=== PATIENT | female | born 1985 | race Caucasian/White ===

== ENCOUNTER 2016-12-27 20:01 | Emergency (ER) | payer OTHER ==
--- NOTE | 2016-12-27 22:52 | DIAGNOSTIC IMAGING REPORT ---
PROCEDURE: US ABDOMEN ULTRASOUND-COMPLETE INDICATION: LLQ ABDO PAIN TECHNIQUE: Burns scale and color Doppler sonographic images of the abdomen were obtained without comparison. COMPARISON: None. FINDINGS: The liver is normal in size, contour, and echotexture. No mass or intrahepatic biliary dilatation. The gallbladder is normal without stones or sludge. The wall is normal thickness measuring 2.2 mm. No pericholecystic fluid or Luna sign. The extrahepatic common duct is normal measuring 2.3 mm. The visualized pancreas is normal without ductal dilatation or peripancreatic fluid collection. The abdominal aorta is normal in its course and caliber. The retrohepatic inferior vena cava is patent. There is appropriate hepatopetal flow in the portal vein. The right kidney measures 11.0 cm in length. The left kidney measures approximately 10.4 cm in length. Both kidneys demonstrate normal morphology and cortical thickness without hydronephrosis, cyst, solid mass, or shadowing calculus. Color Doppler imaging demonstrates normal blood flow in each kidney. The spleen is normal in size measuring 9.8 cm in length. There is no perihepatic or perisplenic ascites. IMPRESSION: 1. Normal abdominal ultrasound. 2. Most of the pancreas was seen and appears normal.
--- NOTE | 2016-12-28 00:26 | ED NURSING NOTES ---
Clinical Report - Nurses [facility] [address] [place] [address] 12/27/2016 20:01 Patient: DANIEL MOON TRIAGE Triage time 2014. Acuity: LEVEL 3. Chief Complaint: ABDOMINAL PAIN, NAUSEA and VOMITING. --20:20 Rosa Beth R.N. 20:15 12/27/16. BP: 101/71. HR: 60. RR: 16. O2 saturation: 100%. Temp: 98.4 F. Pain level now: 04/13. --20:20 Rosa Beth R.N. Weight: 61.2 kg stated. Height/Length: 65 inches Per Patient. BMI: 22.5. --20:17 Rosa Beth R.N. Medications Omeprazole Oral 40 mg, daily as needed. OxyCODONE HCl Oral 10 mg, as needed, last dose 2200 (cant hold them down ). --20:15 Rosa Beth R.N. zofran 4mg odt (threw up last 2 at 2200 . --20:16 Rosa Beth R.N. Allergies Augmentin. --20:15 Rosa Beth R.N. Erythromycin. Latex. Penicillin V. Penicillins. Sulfa Drugs. --20:15 Rosa Beth R.N. History Arrived by private vehicle. Historian: patient. Accompanied by friend. This started last night. Onset. (2100). She has had nausea and vomiting. She has had abdominal pain (LLQ abd pain - states pain is a burning cramping pain "I feel like Moon been poisoned). No diarrhea. PAST MEDICAL HX: Last normal menstrual period- 2 weeks. SOCIAL HX: Light tobacco smoker (cigarette)- less than 1/2 a pack per day. Occasional alcohol use. No drug use. --20:20 Rosa Beth R.N. PROBLEMS: Wound Dehiscence. Sciatica. Back Pain. Torticollis. --20:17 Rosa Beth R.N. ADDITIONAL SURGERIES: Back Surgery. Carpal Tunnel Surgery. Hernia Repair. LESI. R ovarian tube removal. Tubal Ligation. --20:17 Rosa Beth R.N. Interventions ID band on patient. To treatment room. --20:20 Rosa Beth R.N. PHYSICAL ASSESSMENT 20:15. Ambulatory to room. Patient gowned. GENERAL / NEURO / PSYCH: Alert. Oriented X 4. Appears in pain. RESPIRATORY: Respirations not labored. CVS: Capillary refill less than 2 seconds. GI / : The patient has had nausea. Emesis noted. Abdominal tenderness. SKIN: Skin is warm and dry. --20:22 Rosa Beth R.N. NURSING PROGRESS NOTES 20:15. Patient gowned. Head of bed elevated. Reassurance given. Patient identifiers checked. Call light placed in reach. Side rails up. Bed placed in lowest position. Patient ready for evaluation- chart flagged. --20:20 Rosa Beth R.N. 20:17 12/27/2016 Zofran ODT (Ondansetron) PO Oral Disintegrating Tablets 4 mg given. Allergies verified and confirmed 5 rights. --20:22 Rosa Beth R.N. 20:20 12/27/2016 Site #1 started via IV in the left antecubital space with an 20g angiocath, with aseptic technique and good blood return; one attempt. Blood drawn: rainbow set. Labeled in the presence of the patient and sent to the lab. Saline lock flushed with 10 mL saline (by LLUVIA Tapia). --20:21 Rosa Beth R.N. 20:20 IV started and bloods drawn. --20:21 Rosa Beth R.N. <<STRICKEN ENTRY-- 21:00 12/27/2016 Reglan (Metoclopramide HCl) IVP 10 mg given over 2 minute(s) via site #1. IV patency established. IV site checked: no pain, redness, or swelling. IV flushed thoroughly pre- and post-medication administration. IVP given by RN. --21:09 Rosa Beth R.N. --END STRIKE>> Other. --23:12 Rosa Beth R.N. 21:10 12/27/2016 PHENERGAN (Promethazine HCl) IVP 25 mg given over 1 minute(s) via site #1. IV patency established. IV site checked: no pain, redness, or swelling. IV flushed thoroughly pre- and post-medication administration. IVP given by RN. --21:25 Rosa Beth R.N. 20:50 pt asking for additional nausea meds, ERMD notified meds given. --21:26 Rosa Beth R.N. 21:05 Pt vomited, ERMD notified, additional nausea meds ordered and given. --21:26 Rosa Beth R.N. 21:10 12/27/16. BP: 111/67. HR: 72. RR: 18. O2 saturation: 100%. Temp: deferred. Pain level now: 02/11. --21:27 Rosa Beth R.N. 21:57 12/27/16. ( US at bedside to do exam). --21:57 Rosa Beth R.N. 22:15 pt ambulated to bathroom, UA obtained and sent to lab. Patient ID band checked for patient name and birthdate: patient confirmed. Clean catch urine collected with return of yellow-colored clear urine; sample sent to lab for urinalysis, culture and HCG. Specimen labeled in the presence of the patient. --23:06 Rosa Beth R.N. 22:00 12/27/16. BP: 130/84. HR: 68. RR: 18. O2 saturation: 100%. Temp: deferred. Pain level now: 12/12. Additional comments: pt states pain and nuasea have increased since she got up to bathroom , asking for aditional nausea meds . --23:07 Rosa Beth R.N. 22:30. Care transferred and report given. --23:07 Rosa Beth R.N. 20:20 12/27/2016 Started bag #1 1000 mL IV Fluids IV NS (Saline); at 1000 mL/hr over 1 hour(s) via site #1 via IV pump. IV patency established. IV site checked: no pain, redness, or swelling. IV flushed thoroughly pre- and post-medication administration. --23:08 Rosa Beth R.N. 20:43 12/27/2016 Zofran (Ondansetron HCl) IVP 4 mg given over 1 minute(s) via site #1. IV patency established. IV site checked: no pain, redness, or swelling. IV flushed thoroughly pre- and post-medication administration. IVP given by RN. --23:09 Rosa Beth R.N. 20:55 12/27/2016 Reglan * IVP 10mg --23:10 Rosa Beth R.N. 20:55 12/27/2016 Reglan (Metoclopramide HCl) IVP 10 mg given over 2 minute(s) via site #1. IV patency established. IV site checked: no pain, redness, or swelling. IV flushed thoroughly pre- and post-medication administration. IVP given by RN (given slowly over 2 min). --23:12 Rosa Beth R.N. 21:00 12/27/2016 Morphine IVP 4 mg given over 1 minute(s) via site #1. IV patency established. IV site checked: no pain, redness, or swelling. IV flushed thoroughly pre- and post-medication administration. IVP given by RN. --23:11 Rosa Beth R.N. <<STRICKEN ENTRY-- 21:30 12/27/2016 Started bag #1 1000 mL IV Fluids IV NS (Saline); at 1000 mL/hr over 1 hour(s) via site #1 via IV pump. IV patency established. IV site checked: no pain, redness, or swelling. IV flushed thoroughly pre- and post-medication administration. --23:15 Rosa Beth R.N. --END STRIKE>> Correction. --23:15 Rosa Beth R.N. 21:30 12/27/2016 Started bag #2 1000 IV Fluids IV NS (Saline); at 1000 mL/hr over 1 hour(s) via site #1 via IV pump. IV patency established. IV site checked: no pain, redness, or swelling. IV flushed thoroughly pre- and post-medication administration. --23:15 Rosa Beth R.N. 21:30 12/27/2016 IV Fluids IV NS Discontinued: bag #1 infused. Total amount infused: 1000 mL. --23:13 Rosa Beth R.N. 22:40 12/27/2016 IV Fluids IV NS Discontinued: bag #2 infused. Total amount infused: 1000 mL. IV patency established. IV site checked: no pain, redness, or swelling. IV flushed thoroughly. (converted to saline lock). --23:16 Rosa Beth R.N. 23:10. The patient is sleeping. SKIN: Skin color within normal limits. --23:56 Juan Porras R.N. 23:56. The patient is calm and resting quietly. SKIN: Skin is warm and dry. Skin color within normal limits. --23:57 Juan Porras R.N. 23:56 12/27/16. BP: 118/74. HR: 61. RR: 15. O2 saturation: 98%. Pain level now: 5/10. --23:57 Juan Porras R.N. 00:26. The patient is calm and resting quietly. SKIN: Skin is warm and dry. Skin color within normal limits. --00:32 Juan Porras R.N. DISPOSITION / DISCHARGE Departure time: 00:28. ( See progress for vitals). The patient left the Emergency Department against medical advice. The patient appears to be alert, oriented x4, coherent and in no acute distress. She notified the ED staff prior to leaving the department and stated is leaving the ED due to personal reasons. Notified the ED physician and charge nurse of patient departure. Prior to leaving the ED, she was advised to stay for completion of treatment and return if needed. She was informed of the risks of leaving and verbalized understanding of these risks. Patient signed form prior to leaving. She left the Emergency Department ambulatory and via private vehicle. --00:32 Juan Porras R.N. 00:23 12/28/2016 Site #1 removed upon discharge. Catheter intact. Bandage applied. --00:36 Juan Porras R.N. Locked/Released at 12/28/2016 1:26 by Juan Porras R.N.
--- NOTE | 2016-12-28 00:26 | ED ORDER SUMMARY ---
..... Patient: DANIEL MOON OrderSheet [facility] VisitID: [id number] [place] [address] 31y, F Registration Date/Time: 12/27/2016 ORDER SHEET Weight: 61.2 kg (stated) Allergies: Augmentin, Erythromycin, Latex, Penicillin V, Penicillins, Sulfa Drugs GENERAL ORDERS: US Abdomen Limited (No) Urgent (20:37 12/27/2016 Jason Mobley) (Ack 20:41 [facility] Manager) (23:03 [facility] Aquatics Manager) CBC w Diff Urgent (20:38 12/27/2016 Jason Mobley) (Ack 20:41 [facility] Aqu[facility] Manager) (20:43 DDean R.N.) CMP Urgent (20:38 12/27/2016 Jason Mobley) (Ack 20:41 [facility] Aqu[facility] Manager) (20:43 DDean R.N.) UA-Culture if indicated Urgent (20:38 12/27/2016 Jason Mobley) (Ack 20:41 [facility] Aquatics Manager) (23:07 DDean R.N.) Lipase Urgent (20:38 12/27/2016 Jason Mobley) (Ack 20:41 [facility] Aquatics Manager) (20:43 DDean R.N.) Serum Quantitative Urgent (20:38 12/27/2016 Jason Mobley) (Ack 20:41 [facility] Aqu[facility] Manager) (23:07 DDean R.N.) Pulse oximeter (20:38 12/27/2016 Jason Mobley) (21:25 DDean R.N.) CT Abd/Pel w Cont (No) (See report) Urgent (23:20 12/27/2016 Ana WILD) (Ack 23:22 [facility] Aquatics Manager) (Cancelled: Patient Left0:45 [facility] Aquatics Manager) MEDICATION ORDERS: Zofran ODT PO 4 mg (NOW) (20:21 12/27/2016 DDean R.N. per protocol) (20:22 DDean R.N.) Phenergan IV 25 mg (HIGH ALERT MEDICATION, NOW) (21:10 12/27/2016 Jason Mobley) (21:25 DDean R.N.) IV FLUIDS: Morphine IV 4 mg (HIGH ALERT MEDICATION, NOW) (20:37 12/27/2016 Jason Mobley) (Ack 20:43 DDean R.N.) (23:11 DDean R.N.) IV NS : initial bolus 1000 mL (1000 mL/hr), then none - for X1 (NOW) (20:38 12/27/2016 Jason Mobley) (Ack 20:43 DDean R.N.) (23:08 DDean R.N.) Zofran IV 4 mg (NOW) (20:38 12/27/2016 Jason Mobley) (Ack 20:43 DDean R.N.) (23:09 DDean R.N.) Reglan IV 10 mg (NOW) (20:52 12/27/2016 Jason Mobley) (21:09 DDean R.N.) IV NS : initial bolus none -, then 1000 mL/hr for X1 (NOW) (23:14 12/27/2016 DDean R.N. per protocol) (23:15 DDean R.N.) ORDER SHEET NOTES: [Electronically signed by Juan Porras R.N. (:12/28/2016)] [Electronically signed by Abner Hilton MD (11:29 12/28/2016)] [Electronically locked/signed by Juan Porras R.N. (12/28/2016)]
--- NOTE | 2016-12-28 00:26 | ED ORDER SUMMARY ---
..... Patient: DANIEL MOON OrderSheet [facility] VisitID: [id number] [place] [address] 31y, F Registration Date/Time: 12/27/2016 ORDER SHEET Weight: 61.2 kg (stated) Allergies: Augmentin, Erythromycin, Latex, Penicillin V, Penicillins, Sulfa Drugs GENERAL ORDERS: US Abdomen Limited (No) Urgent (20:37 12/27/2016 Jason Mobley) (Ack 20:41 [facility] Pta) (23:03 [facility] ER Pta) CBC w Diff Urgent (20:38 12/27/2016 Jason Mobley) (Ack 20:41 [facility] ER Pta) (20:43 DDean R.N.) CMP Urgent (20:38 12/27/2016 Jason Mobley) (Ack 20:41 [facility] ER Pta) (20:43 DDean R.N.) UA-Culture if indicated Urgent (20:38 12/27/2016 Jason Mobley) (Ack 20:41 [facility] ER Pta) (23:07 DDean R.N.) Lipase Urgent (20:38 12/27/2016 Jason Mobley) (Ack 20:41 [facility] ER Pta) (20:43 DDean R.N.) Serum Quantitative Urgent (20:38 12/27/2016 Jason Mobley) (Ack 20:41 [facility] ER Pta) (23:07 DDean R.N.) Pulse oximeter (20:38 12/27/2016 Jason Mobley) (21:25 DDean R.N.) CT Abd/Pel w Cont (No) (See report) Urgent (23:20 12/27/2016 Ana WILD) (Ack 23:22 [facility] Pta) (Cancelled: Patient Left0:45 [facility] ER Pta) MEDICATION ORDERS: Zofran ODT PO 4 mg (NOW) (20:21 12/27/2016 DDean R.N. per protocol) (20:22 DDean R.N.) Phenergan IV 25 mg (HIGH ALERT MEDICATION, NOW) (21:10 12/27/2016 Jason Mobley) (21:25 DDean R.N.) IV FLUIDS: Morphine IV 4 mg (HIGH ALERT MEDICATION, NOW) (20:37 12/27/2016 Jason Mobley) (Ack 20:43 DDean R.N.) (23:11 DDean R.N.) IV NS : initial bolus 1000 mL (1000 mL/hr), then none - for X1 (NOW) (20:38 12/27/2016 Jaosn Mobley) (Ack 20:43 DDean R.N.) (23:08 DDean R.N.) Zofran IV 4 mg (NOW) (20:38 12/27/2016 Jason Mobley) (Ack 20:43 DDean R.N.) (23:09 DDean R.N.) Reglan IV 10 mg (NOW) (20:52 12/27/2016 Jason Mobley) (21:09 DDean R.N.) IV NS : initial bolus none -, then 1000 mL/hr for X1 (NOW) (23:14 12/27/2016 DDean R.N. per protocol) (23:15 DDean R.N.) ORDER SHEET NOTES: [Electronically signed by Juan Porras R.N. (:12/28/2016)] [Electronically signed by Abner Hilton MD (11:29 12/28/2016)] [Electronically locked/signed by Juan Porras R.N. (12/28/2016)]
--- NOTE | 2016-12-28 00:26 | ED CLINICAL REPORT ---
Clinical Report - Physicians/Mid Levels [facility] [address] [place] [address] 12/27/2016 20:01 Patient: DANIEL MOON Time Seen: 2029. Arrived- By private vehicle. Historian- patient. HISTORY OF PRESENT ILLNESS Chief Complaint: ABDOMINAL PAIN. This started last night and is still present (unchanged). It was abrupt in onset and has been constant but is not gone now. At its maximum, severity described as severe. When seen in the E.D., severity described as severe. It is described as sharp. No radiation. It is described as located in the left lower quadrant. The patient has had nausea and vomiting. No loss of appetite or diarrhea. No additional abdominal pain. No recent travel. Similar symptoms previously: None. Recent medical care: Not recently seen/assessed. REVIEW OF SYSTEMS No constipation, black stools, bloody stools, fever or chest pain. No difficulty breathing. All systems otherwise negative, except as recorded above. PAST HISTORY See nurses notes. SOCIAL HISTORY Current every day light tobacco smoker (cigarette)- less than 1/2 a pack per day. Occasional alcohol use. No drug use. FAMILY HISTORY Denies family medical history. ADDITIONAL NOTES The nursing notes have been reviewed. PHYSICAL EXAM Vital Signs: 12/27/2016 20:15 BP: 101/71. HR: 60. RR: 16. O2 saturation: 100%. Temp: 98.4 F. Pain level now: 10/10. Blood pressure normal. Oxygen saturation normal. Appearance: Alert. Oriented X3. Patient in mild distress. Eyes: Pupils equal, round and reactive to light. Eyes normal inspection. No scleral icterus or pale conjunctivae. ENT: Pharynx normal. CVS: Normal heart rate and rhythm. Heart sounds normal. Pulses normal. Respiratory: No respiratory distress. Breath sounds normal. Chest nontender. Abdomen: Soft. Tenderness in the left lower quadrant. No guarding, rebound tenderness or Luna's, obturator or psoas sign present. Bowel sounds normal. No mass. Skin: Skin warm and dry. Normal skin color. No rash. Normal skin turgor. Neuro: No motor deficit. No sensory deficit. LABS, X-RAYS, AND EKG Abdominal Sonogram: Normal study. (discussed with the US tech). The study was independently viewed by me. Laboratory Tests: UA-Culture if indicated: (HILARY: 12/27/2016 22:10) ( [facility] [place] 12/27/2016 22:33) Final results Test Result Flag Units (Reference) URINE COLOR ORANGE URINE APPEARANCE SL CLOUDY URINE GLUCOSE NEGATIVE (NEGATIVE) URINE BILIRUBIN NEGATIVE (NEGATIVE) URINE KETONE NEGATIVE (NEGATIVE) URINE SPECIFIC GRAVITY 1.020 (1.010-1.030) URINE PH 7.0 (5.0-8.0) URINE PROTEIN 1+ (NEGATIVE) URINE UROBILINOGEN 0.2 EU/dL (0.2-1.0) URINE NITRITE NEGATIVE (NEGATIVE) URINE BLOOD NEGATIVE (NEGATIVE) URINE LEUK ESTERASE NEGATIVE (NEGATIVE) URINE RBC 0-1 rbc/hpf (0-1) URINE WBC 1-3 wbc/hpf (0-1) URINE EPITHELIAL CELLS 1-3 EPI/hpf (0-5) URINE BACTERIA FEW (1+) (NONE SEEN) URINE COMMENT CULT NOT INDICATED URINE CULTURES ARE SET-UP BASED ON THE FOLLOWING CRITERIA:POSITIVE NITRITEPOSITIVE LEUKOCYTE ESTERASEGREATER THAN 10 WHITE BLOOD CELLSMODERATE (2+) OR GREATER BACTERIA CBC w Diff: (HILARY: 12/27/2016 20:20) ( [facility] 12/27/2016 21:03) Final results Test Result Flag Units (Reference) WHITE BLOOD COUNT 10.1 K/uL (4.5-11.5) RED BLOOD COUNT 5.11 M/uL (4.00-5.20) HEMOGLOBIN 15.1 gm/dL (12.0-16.0) HEMATOCRIT 45.5 % (36.0-46.0) MEAN CELL VOLUME 89 fL (80-100) MEAN CORPUSCULAR HGB 30 pg (26-34) MEAN CORPUSCULAR HGB CONC 33 g/dL (31-37) RED CELL DISTRIBUTION WIDTH 13.7 % (11.6-14.8) PLATELET COUNT 461 H K/uL (150-400) NEUTROPHIL % 80.5 H % (50-75) LYMPH % 14.7 L % (25-40) MONO % 4.6 % (3-14) EOSINOPHIL % 0 % (0-4) BASOPHIL % 0.2 % (0-2) CMP: (HILARY: 12/27/2016 20:20) ( [facility] 12/27/2016 21:15) Final results Test Result Flag Units (Reference) GLUCOSE 97 mg/dL (70-110) BUN 24 H mg/dL (7-18) CREATININE 0.9 mg/dL (0.6-1.3) Estimated GFR >60 mL/min Estimated GFR- >60 mL/min Note: Persistent reduction over 3 months in eGFR<60 mL/min/1.73 m2 defines CKD. Patients with eGFR values>=60 mL/min/1.73 m2 may also have CKD if evidence ofpersistent proteinuria. Additional information may be foundat www.kidney.org. SODIUM 144 mmol/L (136-145) POTASSIUM 3.8 mmol/L (3.5-5.1) CHLORIDE 103 mmol/L (98-107) CARBON DIOXIDE 25 mmol/L (21-32) CALCIUM 9.7 mg/dL (8.5-10.1) TOTAL PROTEIN 8.1 g/dL (6.4-8.2) ALBUMIN 4.4 g/dL (3.3-5.0) BILIRUBIN, TOTAL 0.7 mg/dL (0.0-1.0) ALKALINE PHOSPHATASE 57 U/L (46-116) AST (SGOT) 14 L U/L (15-37) ALT (SGPT) 23 U/L (12-78) LIPASE 148 U/L (73-393) BETA HCG, QUANTITATIVE 1 mIU/mL REFERENCE RANGE:Adult Males: <2 mIU/mLNon- Females: <6 mIU/mL Females:Approximate Approximate hCGGestational Age Range (mIU/mL) 0-1 week 0-501-2 weeks 40-3002-3 weeks 100-43895-0 weeks 500-01546-3 months 5,000-200,0002-3 months 10,000-100,0002nd trimester 3,000-50,0003rd trimester 1,000-50,000 . PROGRESS AND PROCEDURES Course of Care: patient with left lower quadrant abdominal pain as well as nausea and vomiting. Patient will be evaluated with ultrasound of the left lower quadrant for any ovarian or COPIER REPAIR TECHNICIAN pathology. Laboratory studies including urinalysis and test have been ordered. Workup is currently pending. Patient will be signed out to the oncoming physician at the change of shift. Plan is follow-up on the patient's labs and imaging. Dr. Jean and I discussed the patient's history and physical examination findings and the results of her labs. He requested that I follow up on the results of her ultrasound which I did. I subsequently reviewed the patient's history with her and examined her and my findings were consistent with those noted by him. I subsequently suggested that she might benefit from CT imaging. This was subsequently ordered. However, she subsequently decided that she did not want to wait for the imaging. I expressed my concern for the possibility of a missed or an erroneous diagnosis. She acknowledged an understanding of this but said that she did not want to wait and wished to depart. She subsequently signed an AMA form. I did tell her that she could return at any time if she wishes and I did provide her with prescriptions for symptomatic relief as noted. - MW. Patient/family counseled. Old medical records ordered. CLINICAL IMPRESSION Acute left lower quadrant abdominal pain of unknown cause. INSTRUCTIONS No driving or operating machinery while taking medication. Sedative medication was given during your visit. Drink plenty of fluids. Warnings: Further evaluation is necessary. GENERAL WARNINGS: Return or contact your physician immediately if your condition worsens or changes unexpectedly, if not improving as expected, or if other problems arise. Prescription Medications: Zofran 4 mg: Take 1 orally every six hours as needed for nausea/vomiting. Dispense ten (10). No refills. Substitution is permissible. Phenergan suppositories 25 mg: Insert 1 rectally every 4 to 6 hours as needed for nausea or vomiting. Dispense ten (10). No refills. Substitution is permissible. Follow-up: Follow up with your doctor today. Understanding of the discharge instructions verbalized by patient. (Electronically signed by Abner Hilton MD 12/28/2016 11:29)
--- NOTE | 2016-12-28 11:29 | ED MED RECONCILIATION SUMMARY ---
Patient: DANIEL MOON Medication Reconciliation Report [facility] VisitID: [id number] [place] [address] 31y, F Registration Date/Time: 12/27/2016 Weight: 61.2 kg Height/Length: 65 in. BMI: 22.5 ALLERGIES: Augmentin, Erythromycin, Latex, Penicillin V, Penicillins, Sulfa Drugs The patient's Home Medications are listed below: THE FOLLOWING MEDICATIONS NEED TO BE RECONCILED: Omeprazole Oral 40 mg, daily OxyCODONE HCl Oral 10 mg, last dose: 2200 (cant hold them down ) zofran 4mg odt (threw up last 2 at 2200 The source(s) of the original Home Medication information: Not obtained. The following Medications were given to the patient in the Emergency Department: Zofran ODT [PO] PO 4 mg, administered: 12/27/2016 8:17:00 PM Reglan [IVP] IVP 10 mg, administered: 12/27/2016 8:55:00 PM PHENERGAN [IVP] IVP 25 mg, administered: 12/27/2016 9:10:00 PM IV NS IV Fluids bolus 0, then 1000 mL/hr, administered: 12/27/2016 8:20:00 PM Zofran [IVP] IVP 4 mg, administered: 12/27/2016 8:43:00 PM Reglan IVP 10mg, administered: 12/27/2016 8:55:00 PM Morphine [IVP] IVP 4 mg, administered: 12/27/2016 9:00:00 PM IV NS IV Fluids bolus 0, then 1000 mL/hr, administered: 12/27/2016 9:30:00 PM The following Medications were prescribed to the patient: Zofran 4 mg: Take 1 orally every six hours as needed for nausea/vomiting. Dispense ten (10). No refills. Substitution is permissible. -- Abner Hilton MD Phenergan suppositories 25 mg: Insert 1 rectally every 4 to 6 hours as needed for nausea or vomiting. Dispense ten (10). No refills. Substitution is permissible. -- Abner Hilton MD
--- NOTE | 2016-12-28 11:29 | ED DISCHARGE INSTRUCTIONS ---
Patient: DANIEL MOON General Instructions [facility] VisitID: [id number] [place] [address] 31y, F Registration Date/Time: 12/27/2016 Acute left lower quadrant abdominal pain of unknown cause. INSTRUCTIONS No driving or operating machinery while taking medication. Sedative medication was given during your visit. Drink plenty of fluids. Warnings: Further evaluation is necessary. GENERAL WARNINGS: Return or contact your physician immediately if your condition worsens or changes unexpectedly, if not improving as expected, or if other problems arise. Prescription Medications: Zofran 4 mg: Take 1 orally every six hours as needed for nausea/vomiting. Dispense ten (10). No refills. Substitution is permissible. Phenergan suppositories 25 mg: Insert 1 rectally every 4 to 6 hours as needed for nausea or vomiting. Dispense ten (10). No refills. Substitution is permissible. Follow-up: Follow up with your doctor today. Understanding of the discharge instructions verbalized by patient. ADDITIONAL INFORMATION Abdominal Pain, Unknown Cause (Female) The exact cause of your abdominal (stomach) pain is not certain. This does not mean that this is something to worry about, or the right tests were not done. Everyone likes to know the exact cause of the problem, but sometimes with abdominal pain, there is no clear-cut cause, and this could be a good thing. The good news is that your symptoms can be treated, and you will feel better. Your condition does not seem serious now; however, sometimes the signs of a serious problem may take more time to appear. For this reason,it is important for you to watch for any new symptoms, problems,or worsening of your condition. Over the next few days, the abdominal pain may come and go, or be continuous. Other common symptoms can include nausea and vomiting. Sometimes it can be difficult to tell if you feel nauseous, you may just feel bad and not associate that feeling with nausea. Constipation, diarrhea, and a fever may go along with the pain. The pain may continue even if treated correctly over the following days. Depending on how things go, sometimes the cause can become clear and may require further or different treatment. Additional evaluations, medications, or tests may be needed. Home care Your health care provider may prescribe medications for pain, symptoms, or an infection. Follow the health care provider's instructions for taking these medications. General care Rest until your next exam. No strenuous activities. Try to find positions that ease discomfort. A small pillow placed on the abdomen may help relieve pain. Something warm on your abdomen (such as a heating pad) may help, but be careful not to burn yourself. Diet Do not force yourself to eat, especially if having cramps, vomiting, or diarrhea. Water is important so you do not get dehydrated. Soup may also be good. Sports drinks may also help, especially if they are not too acidic. Make sure you don't drink sugary drinks as this can make things worse. Take liquids in small amounts. Do not guzzle them. Caffeine sometimes makes the pain and cramping worse. Avoid dairy products if you have vomiting or diarrhea. Don't eat large amounts at a time. Wait a few minutes between bites. Eat a diet low in fiber (called a low-residue diet). Foods allowed include refined breads, white rice, fruit and vegetable juices without pulp, tender meats. These foods will pass more easily through the intestine. Avoid whole-grain foods, whole fruits and vegetables, meats, seeds and nuts, fried or fatty foods, dairy, alcohol and spicy foods until your symptoms go away. Follow-up care Follow up with your health care provider as instructed, or if your pain does not begin to improve in the next 24 hours. When to seek medical care Seek prompt medical care if any of the following occur: Pain gets worse or moves to the right lower abdomen New or worsening vomiting or diarrhea Swelling of the abdomen Unable to pass stool for more than three days Fever of 100.4F (38C) or higher, or as directed by your healthcare provider. Blood in vomit or bowel movements (dark red or black color) Jaundice (yellow color of eyes and skin) Weakness, dizziness Chest, arm, back, neck or jaw pain Unexpected vaginal bleeding or missed period Call 911 Call emergency services if any of the following occur: Trouble breathing Confusion Fainting or loss of consciousness Rapid heart rate Seizure Ondansetron Oral disintegrating tablet What is this medicine? ONDANSETRON (on ONEIL se zain) is used to treat nausea and vomiting caused by chemotherapy. It is also used to prevent or treat nausea and vomiting after surgery. How should I use this medicine? These tablets are made to dissolve in the mouth. Do not try to push the tablet through the foil backing. With dry hands, peel away the foil backing and gently remove the tablet. Place the tablet in the mouth and allow it to dissolve, then swallow. While you may take these tablets with water, it is not necessary to do so. Talk to your amortization clerk regarding the use of this medicine in children. Special care may be needed. What side effects may I notice from receiving this medicine? Side effects that you should report to your doctor or health career development director as soon as possible: allergic reactions like skin rash, itching or hives, swelling of the face, lips, or tongue breathing problems dizziness fast or irregular heartbeat feeling faint or lightheaded, falls fever and chills swelling of the hands and feet tightness in the chest Side effects that usually do not require medical attention (report to your doctor or health career development director if they continue or are bothersome): constipation or diarrhea headache What may interact with this medicine? Do not take this medicine with any of the following medications: -apomorphine -cisapride -dofetilide -dronedarone -pimozide -thioridazine -ziprasidone This medicine may also interact with the following medications: -carbamazepine -phenytoin -rifampicin -tramadol -other medicines that prolong the QT interval (cause an abnormal heart rhythm) What if I miss a dose? If you miss a dose, take it as soon as you can. If it is almost time for your next dose, take only that dose. Do not take double or extra doses. Where should I keep my medicine? Keep out of the reach of children. Store between 2 and 30 degrees C (36 and 86 degrees F). Throw away any unused medicine after the expiration date. What should I tell my health care provider before I take this medicine? They need to know if you have any of these conditions: heart disease history of irregular heartbeat liver disease low levels of magnesium or potassium in the blood an unusual or allergic reaction to ondansetron, granisetron, other medicines, foods, dyes, or preservatives or trying to get breast-feeding What should I watch for while using this medicine? Check with your doctor or health career development director as soon as you can if you have any sign of an allergic reaction. Promethazine Hydrochloride Rectal suppository What is this medicine? PROMETHAZINE (proe METH a zeen) is an antihistamine. It is used to treat allergic reactions and to treat or prevent nausea and vomiting from illness or motion sickness. It is also used to make you sleep before surgery, and to help treat pain or nausea after surgery. How should I use this medicine? This medicine is for rectal use only. Do not take by mouth. Wash your hands before and after use. Take off the foil wrapping. Wet the tip of the suppository with cold tap water to make it easier to use. Lie on your side with your lower leg straightened out and your upper leg bent forward toward your stomach. Lift upper buttock to expose the rectal area. Apply gentle pressure to insert the suppository completely into the rectum, pointed end first. Hold buttocks together for a few seconds. Remain lying down for about 15 minutes to avoid having the suppository come out. Do not use more often than directed. Talk to your amortization clerk regarding the use of this medicine in children. Special care may be needed. This medicine should not be given to infants and children younger than 2 years old. What side effects may I notice from receiving this medicine? Side effects that you should report to your doctor or health career development director as soon as possible: blurred vision irregular heartbeat, palpitations or chest pain muscle or facial twitches pain or difficulty passing urine seizures skin rash slowed or shallow breathing unusual bleeding or bruising yellowing of the eyes or skin Side effects that usually do not require medical attention (report to your doctor or health career development director if they continue or are bothersome): headache nightmares, agitation, nervousness, excitability, not able to sleep (these are more likely in children) stuffy nose What may interact with this medicine? Do not take this medicine with any of the following medications: medicines called MAO Inhibitors like Nardil, Parnate, Marplan, Eldepryl other phenothiazines like trimethobenzamide This medicine may also interact with the following medications: barbiturates such as phenobarbital bromocriptine certain antidepressants certain antihistamines used in allergy or cold medicines epinephrine levodopa medicines for sleep medicines for mental problems and psychotic disturbances medicines for movement abnormalities as in Parkinson's disease, or for gastrointestinal problems muscle relaxants prescription pain medicines What if I miss a dose? If you miss a dose, use it as soon as you can. If it is almost time for your next dose, use only that dose. Do not use double doses. Where should I keep my medicine? Keep out of the reach of children. Store in a refrigerator between 2 and 8 degrees C (36 and 46 degrees F). Throw away any unused medicine after the expiration date. What should I tell my health care provider before I take this medicine? They need to know if you have any of these conditions: glaucoma high blood pressure or heart disease kidney disease liver disease lung or breathing disease, like asthma prostate trouble pain or difficulty passing urine seizures an unusual or allergic reaction to promethazine or phenothiazines, other medicines, foods, dyes, or preservatives or trying to get breast-feeding What should I watch for while using this medicine? Tell your doctor or health career development director if your symptoms do not start to get better in 1 to 2 days. You may get drowsy or dizzy. Do not drive, use machinery, or do anything that needs mental alertness until you know how this medicine affects you. To reduce the risk of dizzy or fainting spells, do not stand or sit up quickly, especially if you are an older patient. Alcohol may increase dizziness and drowsiness. Avoid alcoholic drinks. Your mouth may get dry. Chewing sugarless gum or sucking hard candy, and drinking plenty of water may help. Contact your doctor if the problem does not go away or is severe. This medicine may cause dry eyes and blurred vision. If you wear contact lenses you may feel some discomfort. Lubricating drops may help. See your eye doctor if the problem does not go away or is severe. This medicine can make you more sensitive to the sun. Keep out of the sun. If you cannot avoid being in the sun, wear protective clothing and use sunscreen. Do not use sun lamps or tanning beds/booths. If you are diabetic, check your blood-sugar levels regularly. You have been given the following additional information: Abdominal Pain, Unknown Cause, (Female) Ondansetron Oral disintegrating tablet Promethazine Hydrochloride Rectal suppository No driving or operating machinery while taking medication. Sedative medication was given during your visit. (Electronically signed by Abner Hilton MD 12/28/2016 11:29)
--- NOTE | 2016-12-28 11:29 | ED MED RECONCILIATION SUMMARY ---
Patient: DANIEL MOON Medication Reconciliation Report [facility] VisitID: [id number] [place] [address] 31y, F Registration Date/Time: 12/27/2016 Weight: 61.2 kg Height/Length: 65 in. BMI: 22.5 ALLERGIES: Augmentin, Erythromycin, Latex, Penicillin V, Penicillins, Sulfa Drugs The patient's Home Medications are listed below: THE FOLLOWING MEDICATIONS NEED TO BE RECONCILED: Omeprazole Oral 40 mg, daily OxyCODONE HCl Oral 10 mg, last dose: 2200 (cant hold them down ) zofran 4mg odt (threw up last 2 at 2200 The source(s) of the original Home Medication information: Not obtained. The following Medications were given to the patient in the Emergency Department: Zofran ODT [PO] PO 4 mg, administered: 12/27/2016 8:17:00 PM Reglan [IVP] IVP 10 mg, administered: 12/27/2016 8:55:00 PM PHENERGAN [IVP] IVP 25 mg, administered: 12/27/2016 9:10:00 PM IV NS IV Fluids bolus 0, then 1000 mL/hr, administered: 12/27/2016 8:20:00 PM Zofran [IVP] IVP 4 mg, administered: 12/27/2016 8:43:00 PM Reglan IVP 10mg, administered: 12/27/2016 8:55:00 PM Morphine [IVP] IVP 4 mg, administered: 12/27/2016 9:00:00 PM IV NS IV Fluids bolus 0, then 1000 mL/hr, administered: 12/27/2016 9:30:00 PM The following Medications were prescribed to the patient: Zofran 4 mg: Take 1 orally every six hours as needed for nausea/vomiting. Dispense ten (10). No refills. Substitution is permissible. -- Abner Hilton MD Phenergan suppositories 25 mg: Insert 1 rectally every 4 to 6 hours as needed for nausea or vomiting. Dispense ten (10). No refills. Substitution is permissible. -- Abner Hilton MD
--- NOTE | 2016-12-28 11:29 | ED MAR SUMMARY ---
..... Medication Administration Record [facility] [address] [place] [address] Patient: DANIEL MOON Visit ID: [id number] 31y, F Weight: 61.2 kg Height/Length: 65 in BMI: 22.5 ALLERGIES: Augmentin, Erythromycin, Latex, Penicillin V, Penicillins, Sulfa Drugs Given 20:17 12/27/2016 Rosa Beth R.N. Medication Administered: ZOFRAN ODT [PO] (ONDANSETRON), Dose: 4 mg Oral Disintegrating Tablets PO. Medication Ordered: Zofran ODT PO 4 mg (NOW). Start 20:20 12/27/2016 Rosa Beth R.N., Stop 21:30 12/27/2016 Rosa Beth R.N. Medication Administered: IV NS (SALINE), Dose: IV Fluids over 1 hour(s), Rate: 1000 mL/hr, Dispensed: 1000 mL bag, Site: #1 left AC. Medication Ordered: IV NS : initial bolus 1000 mL (1000 mL/hr), then none - for X1 (NOW). Given 20:43 12/27/2016 Rosa Beth R.N. Medication Administered: ZOFRAN [IVP] (ONDANSETRON HCL), Dose: 4 mg IVP over 1 minute(s), Site: #1 left AC. Medication Ordered: Zofran IV 4 mg (NOW). Given 20:55 12/27/2016 Rosa Beth R.N. Medication Administered: REGLAN [IVP] (METOCLOPRAMIDE HCL), Dose: 10 mg IVP over 2 minute(s), Site: #1 left AC. Medication Ordered: Reglan IV 10 mg (NOW). Given 20:55 12/27/2016 Rosa Beth R.N. Medication Administered: Reglan *, Dose: 10mg * IVP. Medication Ordered: Reglan IV 10 mg (NOW). Given 21:00 12/27/2016 Rosa Beth R.N. Medication Administered: MORPHINE [IVP], Dose: 4 mg IVP over 1 minute(s), Site: #1 left AC. Medication Ordered: Morphine IV 4 mg (HIGH ALERT MEDICATION, NOW). Given 21:10 12/27/2016 Rosa Beth R.N. Medication Administered: PHENERGAN [IVP] (PROMETHAZINE HCL), Dose: 25 mg IVP over 1 minute(s), Site: #1 left AC. Medication Ordered: Phenergan IV 25 mg (HIGH ALERT MEDICATION, NOW). Start 21:30 12/27/2016 Rosa Beth R.N., Stop 22:40 12/27/2016 Rosa Beth R.N. Medication Administered: IV NS (SALINE), Dose: IV Fluids over 1 hour(s), Rate: 1000 mL/hr, Dispensed: 1000 mL bag, Site: #1 left AC. Medication Ordered: IV NS : initial bolus none -, then 1000 mL/hr for X1 (NOW).
--- NOTE | 2016-12-28 11:29 | ED MAR SUMMARY ---
..... Medication Administration Record [facility] [address] [place] [address] Patient: DANIEL MOON Visit ID: [id number] 31y, F Weight: 61.2 kg Height/Length: 65 in BMI: 22.5 ALLERGIES: Augmentin, Erythromycin, Latex, Penicillin V, Penicillins, Sulfa Drugs Given 20:17 12/27/2016 Rosa Beth R.N. Medication Administered: ZOFRAN ODT [PO] (ONDANSETRON), Dose: 4 mg Oral Disintegrating Tablets PO. Medication Ordered: Zofran ODT PO 4 mg (NOW). Start 20:20 12/27/2016 Rosa Beth R.N., Stop 21:30 12/27/2016 Rosa Beth R.N. Medication Administered: IV NS (SALINE), Dose: IV Fluids over 1 hour(s), Rate: 1000 mL/hr, Dispensed: 1000 mL bag, Site: #1 left AC. Medication Ordered: IV NS : initial bolus 1000 mL (1000 mL/hr), then none - for X1 (NOW). Given 20:43 12/27/2016 Rosa Beth R.N. Medication Administered: ZOFRAN [IVP] (ONDANSETRON HCL), Dose: 4 mg IVP over 1 minute(s), Site: #1 left AC. Medication Ordered: Zofran IV 4 mg (NOW). Given 20:55 12/27/2016 Rosa Beth R.N. Medication Administered: REGLAN [IVP] (METOCLOPRAMIDE HCL), Dose: 10 mg IVP over 2 minute(s), Site: #1 left AC. Medication Ordered: Reglan IV 10 mg (NOW). Given 20:55 12/27/2016 Rosa Beth R.N. Medication Administered: Reglan *, Dose: 10mg * IVP. Medication Ordered: Reglan IV 10 mg (NOW). Given 21:00 12/27/2016 Rosa Beth R.N. Medication Administered: MORPHINE [IVP], Dose: 4 mg IVP over 1 minute(s), Site: #1 left AC. Medication Ordered: Morphine IV 4 mg (HIGH ALERT MEDICATION, NOW). Given 21:10 12/27/2016 Rosa Beth R.N. Medication Administered: PHENERGAN [IVP] (PROMETHAZINE HCL), Dose: 25 mg IVP over 1 minute(s), Site: #1 left AC. Medication Ordered: Phenergan IV 25 mg (HIGH ALERT MEDICATION, NOW). Start 21:30 12/27/2016 Rosa Beth R.N., Stop 22:40 12/27/2016 Rosa Beth R.N. Medication Administered: IV NS (SALINE), Dose: IV Fluids over 1 hour(s), Rate: 1000 mL/hr, Dispensed: 1000 mL bag, Site: #1 left AC. Medication Ordered: IV NS : initial bolus none -, then 1000 mL/hr for X1 (NOW).
== END 2016-12-28 00:28 | disposition home or self-care (01) ==
LOC: ED SRH 20:01
DX: R10.32 Left lower quadrant pain (principal); Z72.0 Tobacco use
CPT/HCPCS: 90004; 90100; 90197; 92235; 95059

== ENCOUNTER 2016-12-29 13:42 | Emergency (ER) | payer OTHER ==
--- NOTE | 2016-12-29 15:31 | DIAGNOSTIC IMAGING REPORT ---
PROCEDURE: XR ABDOMEN 1 VIEW INDICATION: Abdominal pain. Nausea and vomiting. TECHNIQUE: AP upright view. COMPARISON: None. FINDINGS: Bowel pattern is normal. Soft tissues and osseous structures are normal. No evidence of free air. Metal umbilical piercing device. IMPRESSION: 1. Negative abdomen.
--- NOTE | 2016-12-29 16:32 | ED NURSING NOTES ---
Clinical Report - Nurses [facility] [address] [place] [address] 12/29/2016 13:45 Patient: DANIEL MOON TRIAGE Triage time 13:49 Dec 29 2016. Acuity: LEVEL 3. Chief Complaint: ABDOMINAL PAIN, NAUSEA and VOMITING. 13:53 12/29/16. Alert. No acute distress. SEPSIS SCREEN: Sepsis Screen. Negative (no infection suspected/documented). --13:53 Ale Wagner 13:53 12/29/16. BP: 132/89. HR: 68. RR: 16. O2 saturation: 100%. Temp: 98.4 F. Pain level now 10/10. --13:53 Ale Wagner. Weight: 61.2 kg stated. Height/Length: 65 inches Per Patient. BMI: 22.5. --13:52 Ale Wagner. Medications Omeprazole Oral 40 mg, daily as needed. OxyCODONE HCl Oral 10 mg, as needed, last dose 2200 (cant hold them down ). zofran 4mg odt (threw up last 2 at 2200 . --13:52 Ale Wagner. Medication/allergy information source: the patient. --13:53 Ale Wagner. Allergies Augmentin. Erythromycin. Latex. Penicillin V. Penicillins. Sulfa Drugs. --13:52 Ale Wagner. History Arrived by private vehicle. Historian: patient. [facility]accompan[facility] Onset. (Wednesday night). Describes the quality as pressure. Relates location as in the epigastric area and upper abdomen. Notes pain level as 10/10 on arrival and at maximum. Provoking / relieving factors: worsened by movement. ( Pt reports that she had stomach pain that started Wednesday night when she was sleeping. Was here on Wednesday and "had to leave early because my ride wouldn't wait."). The patient has had a subjective fever, nausea, vomiting and abdominal pain. No diarrhea or constipation. 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 PAST MEDICAL HX: Immunizations: up-to-date. Last normal menstrual period was 3 weeks ago. Denies current . SOCIAL HX: Former smoker ("quit 5-6 days ago"). Occasional alcohol use. No drug use. No recent travel. No known contact with a sick individual. FALL RISK ASSESSMENT: Fall risk assessment completed. No fall risk identified. NUTRITIONAL RISK ASSESSMENT: The nutritional risk assessment revealed no deficiencies. FUNCTIONAL ASSESSMENT: Functional assessment: no impairments noted. LEARNING NEEDS ASSESSMENT: The learning needs assessment revealed no barriers. SKIN INTEGRITY ASSESSMENT: Skin integrity risk assessment completed. No skin integrity risk identified. --13:53 Ale Wagner. PROBLEMS: Abdominal Pain. Wound Dehiscence. Sciatica. Back Pain. Torticollis. --13:52 Ale Wagner. ADDITIONAL SURGERIES: Back Surgery. Carpal Tunnel Surgery. Hernia Repair. LESI. R ovarian tube removal. Tubal Ligation. --13:52 Ale Wagner. Assessment The patient states feels the same. --13:53 Ale Wagner. Interventions ID band on patient. --13:53 Ale Wagner. PHYSICAL ASSESSMENT 13:54 12/29/16. Ambulatory to room. Patient gowned. GENERAL / NEURO / PSYCH: Alert. Oriented X 4. Appears in pain. HEENT: Mucous membranes are pink. RESPIRATORY: Respirations not labored. CVS: Capillary refill less than 2 seconds. GI / : Abdominal tenderness. SKIN: Skin is warm and dry. --13:54 Ale Wagner. NURSING PROGRESS NOTES 13:54 12/29/16. The plan of care for this patient has been created. Pulse oximeter and NIBP monitor placed on patient; monitor alarms on. Patient gowned. Head of bed elevated. Reassurance given. Two patient identifiers checked. Call light placed in reach. Side rails up x 1. Bed placed in lowest position. Brakes of bed on. Patient ready for evaluation- chart flagged and ED physician and PA notified. --13:54 Ale Wagner 13:55 12/29/16. ( Warm blanket provided to patient.). --13:55 Ale Wagner 14:00 12/29/2016 Site #1 started via IV in the right antecubital space with an 18g angiocath, with aseptic technique and good blood return; one attempt. Blood drawn: rainbow set. Labeled in the presence of the patient and sent to the lab. Saline lock flushed with 10 mL saline. --14:25 Ale Wagner 14:06 12/29/16. ( Patient unwilling to answer questions, "I just went over this on Wednesday when I came in." Lights dimmed per patient request.). --14:06 Ale Wagner 14:10 12/29/2016 Started bag #1 1000 mL IV Fluids IV NS (Saline); at 1000 mL/hr over 1 hour(s) via site #1 via IV pump. Allergies verified and confirmed 5 rights. IV patency established. IV site checked: no pain, redness, or swelling. IV flushed thoroughly pre- and post-medication administration. --14:25 Ale Wagner 14:15 12/29/2016 Zofran (Ondansetron HCl) IVP 8 mg given over 1 minute(s) via site #1. Allergies verified and confirmed 5 rights. IV patency established. IV site checked: no pain, redness, or swelling. IV flushed thoroughly pre- and post-medication administration. IVP given by RN. --14:25 Ale Wagner 14:17 12/29/2016 Toradol IVP 30 mg given over 30 second(s) via site #1. Allergies verified and confirmed 5 rights. IV patency established. IV site checked: no pain, redness, or swelling. IV flushed thoroughly pre- and post-medication administration. IVP given by RN. --14:26 Ale Wagner 14:24 12/29/2016 Started 12.5 mg of PHENERGAN (Promethazine HCl) IVPB in bag #1 50 mL; at 500 mL/hr over 10 minute(s) via site #1 via dial-a-flow. Allergies verified and confirmed 5 rights. IV patency established. IV site checked: no pain, redness, or swelling. IV flushed thoroughly pre- and post-medication administration. --14:29 Ale Wagner 14:31 12/29/16. ( Pt given additional warm blanket per request. States that she believes that she was poisoned by a lady at the [facility] who "hates me."). --14:31 Ale Wagner 14:34 12/29/2016 PHENERGAN IVPB Discontinued: bag #1 infused. Total amount infused: 50 mL. --15:43 Ale Wagner 15:22 12/29/2016 Reglan (Metoclopramide HCl) IVP 10 mg given over 3 minute(s) via site #1. Allergies verified and confirmed 5 rights. IV patency established. IV site checked: no pain, redness, or swelling. IV flushed thoroughly pre- and post-medication administration. IVP given by RN. --15:22 Ale Wagner 15:43 12/29/2016 IV Fluids IV NS Bag Change: bag #1 infused. Total amount infused: 1000. STARTED bag #2 (1000 mL) at 750 mL/hr via IV pump. Confirmed 5 rights. IV patency established. IV site checked: no pain, redness, or swelling. IV flushed thoroughly. --15:43 Ale Wagner 15:47 12/29/16. BP: 99/77. HR: 76. O2 saturation: 100%. --15:47 Ale Wagner 15:47 12/29/16. ( Pt given additional warm blanket per patient request.). --15:47 Ale Wagner 16:34 12/29/2016 Macrobid PO Capsules 100 mg given. Allergies verified and confirmed 5 rights. --16:39 Ale Wagner 16:35 12/29/2016 IV Fluids IV NS Discontinued: bag #2 discontinued upon discharge. Total amount infused: 700 mL. IV patency established. IV site checked: no pain, redness, or swelling. IV flushed thoroughly. --17:17 Ale Wagner 16:38 12/29/2016 Site #1 removed upon discharge. Catheter intact. Manual pressure applied. --17:17 Ale Wagner. DISPOSITION / DISCHARGE 16:38 12/29/16. Departure time: 16:Dec 29 2016. Condition at departure: improved. The goals identified in the patient's plan of care were met. No learning barriers present. Discharge instructions provided and reviewed with the patient. Reviewed warnings (Pt verbalized awareness of warning s/sx listed in dc paperwork.). Reviewed medication(s). Prescription(s) given to the patient (Reglan, zofran, macrobid). Treatments reviewed. Reviewed referral to a primary care physician for followup. Patient verbalized understanding. Written instructions provided in [place]. The patient was discharged by the physician personal banking assistant. She was discharged home and unaccompanied at time of discharge. She left the Emergency Department ambulatory and via private vehicle. Patient driving. FALL RISK ASSESSMENT: Fall risk assessment completed. No fall risk identified. --17:19 Ale Wagner 16:38 12/29/16. BP: 122/88. HR: 71. RR: 16. O2 saturation: 100% on room air. Temp: 98 F. Pain level now: 11/11. --17:19 Ale Wagner. Locked/Released at 12/29/2016 17:19 by Ale Wagner,
--- NOTE | 2016-12-29 16:32 | ED ORDER SUMMARY ---
..... Patient: DANIEL MOON OrderSheet [facility] VisitID: [id number] [place] [address] 31y, F Registration Date/Time: 12/29/2016 ORDER SHEET Weight: 61.2 kg (stated) Allergies: Augmentin, Erythromycin, Latex, Penicillin V, Penicillins, Sulfa Drugs GENERAL ORDERS: CBC w Diff Urgent (13:58 12/29/2016 EKoroleva P.A.-C) (Ack 14:12 LNations ER Tech1) (14:23 ASchmuck) CMP Urgent (13:58 12/29/2016 EKoroleva P.A.-C) (Ack 14:12 LNations ER Tech1) (14:23 ASchmuck) UA-Culture if indicated Urgent (13:58 12/29/2016 EKoroleva P.A.-C) (Ack 14:12 LNations ER Tech1) (14:23 ASchmuck) Lipase Urgent (14:29 12/29/2016 EKoroleva P.A.-C) (Ack 14:34 LNations ER Tech1) (15:14 ASchmuck) Urine Drug Screen Urgent (14:29 12/29/2016 EKoroleva P.A.-C) (Ack 14:34 LNations ER Tech1) (15:14 ASchmuck) Abdomen 1V Urgent (14:46 12/29/2016 EKoroleva P.A.-C) (Ack 15:03 LNations ER Tech1) (15:15 ASchmuck) UA-Culture if indicated Urgent (15:50 12/29/2016 EKoroleva P.A.-C) (Ack 15:57 LNations ER Tech1) (15:59 ASchmuck) MEDICATION ORDERS: Phenergan IV 12.5 mg (HIGH ALERT MEDICATION, NOW) (13:58 12/29/2016 EKoroleva P.A.-C) (Ack 14:05 ASchmuck) (14:29 ASchmuck) Macrobid PO 100 mg (NOW) (16:31 12/29/2016 EKoroleva P.A.-C) (Ack 16:31 ASchmuck) (16:39 ASchmuck) IV FLUIDS: IV NS : initial bolus 1000 mL (1000 mL/hr), then 750 mL/hr for X1 (NOW); Víctor (13:57 12/29/2016 EKoroleva P.A.-C) (Ack 14:04 ASchmuck) (14:25 ASchmuck) Zofran IV 8 mg (NOW) (13:57 12/29/2016 EKoroleva P.A.-C) (Ack 14:05 ASchmuck) (14:25 ASchmuck) Toradol IV 30 mg (NOW) (13:57 12/29/2016 EKoroleva P.A.-C) (Ack 14:05 ASchmuck) (14:26 ASchmuck) Reglan IV 10 mg (NOW) (15:14 12/29/2016 EKoroleva P.A.-C) (Ack 15:15 ASchmuck) (15:22 ASchmuck) ORDER SHEET NOTES: [Electronically signed by Greta Moreno P.A.-C (16:42 12/29/2016)] [Electronically signed by Ale Wagner (17:19 12/29/2016)] [Electronically locked/signed by Ale Wagner (17:19 12/29/2016)]
--- NOTE | 2016-12-29 16:32 | ED ORDER SUMMARY ---
..... Patient: DANIEL MOON OrderSheet [facility] VisitID: [id number] [place] [address] 31y, F Registration Date/Time: 12/29/2016 ORDER SHEET Weight: 61.2 kg (stated) Allergies: Augmentin, Erythromycin, Latex, Penicillin V, Penicillins, Sulfa Drugs GENERAL ORDERS: CBC w Diff Urgent (13:58 12/29/2016 EKoroleva P.A.-C) (Ack 14:12 LNations ER Tech1) (14:23 ASchmuck) CMP Urgent (13:58 12/29/2016 EKoroleva P.A.-C) (Ack 14:12 LNations ER Tech1) (14:23 ASchmuck) UA-Culture if indicated Urgent (13:58 12/29/2016 EKoroleva P.A.-C) (Ack 14:12 LNations ER Tech1) (14:23 ASchmuck) Lipase Urgent (14:29 12/29/2016 EKoroleva P.A.-C) (Ack 14:34 LNations ER Tech1) (15:14 ASchmuck) Urine Drug Screen Urgent (14:29 12/29/2016 EKoroleva P.A.-C) (Ack 14:34 LNations ER Tech1) (15:14 ASchmuck) Abdomen 1V Urgent (14:46 12/29/2016 EKoroleva P.A.-C) (Ack 15:03 LNations ER Tech1) (15:15 ASchmuck) UA-Culture if indicated Urgent (15:50 12/29/2016 EKoroleva P.A.-C) (Ack 15:57 LNations ER Tech1) (15:59 ASchmuck) MEDICATION ORDERS: Phenergan IV 12.5 mg (HIGH ALERT MEDICATION, NOW) (13:58 12/29/2016 EKoroleva P.A.-C) (Ack 14:05 ASchmuck) (14:29 ASchmuck) Macrobid PO 100 mg (NOW) (16:31 12/29/2016 EKoroleva P.A.-C) (Ack 16:31 ASchmuck) (16:39 ASchmuck) IV FLUIDS: IV NS : initial bolus 1000 mL (1000 mL/hr), then 750 mL/hr for X1 (NOW); Víctor (13:57 12/29/2016 EKoroleva P.A.-C) (Ack 14:04 ASchmuck) (14:25 ASchmuck) Zofran IV 8 mg (NOW) (13:57 12/29/2016 EKoroleva P.A.-C) (Ack 14:05 ASchmuck) (14:25 ASchmuck) Toradol IV 30 mg (NOW) (13:57 12/29/2016 EKoroleva P.A.-C) (Ack 14:05 ASchmuck) (14:26 ASchmuck) Reglan IV 10 mg (NOW) (15:14 12/29/2016 EKoroleva P.A.-C) (Ack 15:15 ASchmuck) (15:22 ASchmuck) ORDER SHEET NOTES: [Electronically signed by Greta Moreno P.A.-C (16:42 12/29/2016)] [Electronically signed by Ale Wagner (17:19 12/29/2016)] [Electronically locked/signed by Ale Wagner (17:19 12/29/2016)]
--- NOTE | 2016-12-29 16:32 | ED CLINICAL REPORT ---
Clinical Report - Physicians/Mid Levels [facility] [address] [place] [address] 12/29/2016 13:45 Patient: DANIEL MOON Time Seen: 14:01 Dec 29 2016. Arrived- By private vehicle. HISTORY OF PRESENT ILLNESS Chief Complaint: ABDOMINAL PAIN. This started just prior to arrival. (patient reports epigastric pain, with nausea and vomiting since the was seen in the emergency department, and was discharged home, and has having a difficult time with keeping fluids.patient denies sick contacts. He recently ate teriyaki. Denies hematochezia, hematemesis.). REVIEW OF SYSTEMS No constipation, black stools, difficulty with urination, pain with urination or chest pain. No difficulty breathing or cough. She has had fever and chills. All systems otherwise negative, except as recorded above. PAST HISTORY Problems: Abdominal Pain. Wound Dehiscence. Sciatica. Tetanus Status. Immunizations. Back Pain. Torticollis. LNMP - Last Normal Menstrual Period. Additional Surgeries: Back Surgery. Carpal Tunnel Surgery. Hernia Repair. LESI. R ovarian tube removal. Tubal Ligation. Medications: Omeprazole Oral 40 mg, daily as needed. OxyCODONE HCl Oral 10 mg, as needed, last dose 2200 (cant hold them down ). zofran 4mg odt (threw up last 2 at 2200 . Allergies: Augmentin. Erythromycin. Latex. Penicillin V. Penicillins. Sulfa Drugs. SOCIAL HISTORY Former smoker. No drug use. ADDITIONAL NOTES The nursing notes have been reviewed. PHYSICAL EXAM Vital Signs: 12/29/2016 13:53 BP: 132/89. HR: 68. RR: 16. O2 saturation: 100%. Temp: 98.4 F. Appearance: Alert. Eyes: Eyes normal inspection. ENT: Nose normal. Pharynx normal. No tonsillar exudate. Neck: Normal inspection. No lymphadenopathy or thyromegaly. CVS: Normal heart rate and rhythm. No cardiac murmur or extra heart sounds. Respiratory: No respiratory distress. Breath sounds normal. No decreased air movement. Abdomen: Soft. Tenderness in the epigastric area. Back: Normal inspection. No CVA tenderness. Skin: Normal skin color. Neuro: Oriented X 3. LABS, X-RAYS, AND EKG KUB: (IMPRESSION: 1. Negative abdomen. Electronically Final signed by:Seth Lozoya MD 12/29/2016 3:26:05 PM). Laboratory Tests: UA-Culture if indicated: (HILARY: 12/29/2016 15:31) ( [facility] 12/29/2016 15:53) IP Test Result Flag Units (Reference) URINE COLOR LIGHT YELLOW URINE APPEARANCE CLEAR URINE GLUCOSE NEGATIVE (NEGATIVE) URINE BILIRUBIN NEGATIVE (NEGATIVE) URINE KETONE NEGATIVE (NEGATIVE) URINE SPECIFIC GRAVITY <= 1.005 L (1.010-1.030) URINE PH 6.5 (5.0-8.0) URINE PROTEIN NEGATIVE (NEGATIVE) URINE UROBILINOGEN 0.2 EU/dL (0.2-1.0) URINE NITRITE NEGATIVE (NEGATIVE) URINE BLOOD NEGATIVE (NEGATIVE) URINE LEUK ESTERASE TRACE (NEGATIVE) UA-Culture if indicated: (HILARY: 12/29/2016 14:00) ( [facility] 12/29/2016 14:55) Final results Test Result Flag Units (Reference) URINE COLOR YELLOW URINE APPEARANCE CLOUDY URINE GLUCOSE NEGATIVE (NEGATIVE) URINE BILIRUBIN NEGATIVE (NEGATIVE) URINE KETONE TRACE (NEGATIVE) URINE SPECIFIC GRAVITY 1.020 (1.010-1.030) URINE PH 6.0 (5.0-8.0) URINE PROTEIN NEGATIVE (NEGATIVE) URINE UROBILINOGEN 0.2 EU/dL (0.2-1.0) URINE NITRITE NEGATIVE (NEGATIVE) URINE BLOOD TRACE-LYSED (NEGATIVE) URINE LEUK ESTERASE POSITIVE (NEGATIVE) URINE RBC 0-1 rbc/hpf (0-1) URINE WBC 10-15 wbc/hpf (0-1) URINE EPITHELIAL CELLS >15 EPI/hpf (0-5) URINE BACTERIA MODERATE (2+ TO 3+) (NONE SEEN) URINE COMMENT CULT NOT INDICATED 2+ AMORPHOUS CRYSTALS PLEASE NOTE: CULTURE WILL NOT BE PERFORMED DUE TO >15EPI'S PRESENT. IF CULTURE IS WARRANTED, PLEASE RE-COLLECTAND SUBMIT NEW SPECIMEN. URINE CULTURES ARE SET-UP BASED ON THE FOLLOWING CRITERIA:POSITIVE NITRITEPOSITIVE LEUKOCYTE ESTERASEGREATER THAN 10 WHITE BLOOD CELLSMODERATE (2+) OR GREATER BACTERIA CBC w Diff: (HILARY: 12/29/2016 14:00) ( MsgRcvd 12/29/2016 14:10) Final results Test Result Flag Units (Reference) WHITE BLOOD COUNT 7.9 K/uL (4.5-11.5) RED BLOOD COUNT 4.96 M/uL (4.00-5.20) HEMOGLOBIN 14.8 gm/dL (12.0-16.0) HEMATOCRIT 44.1 % (36.0-46.0) MEAN CELL VOLUME 89 fL (80-100) MEAN CORPUSCULAR HGB 30 pg (26-34) MEAN CORPUSCULAR HGB CONC 34 g/dL (31-37) RED CELL DISTRIBUTION WIDTH 13.6 % (11.6-14.8) PLATELET COUNT 375 K/uL (150-400) NEUTROPHIL % 70.0 % (50-75) LYMPH % 22.1 L % (25-40) MONO % 7.0 % (3-14) EOSINOPHIL % 0.2 % (0-4) BASOPHIL % 0.7 % (0-2) Urine Drug Screen: (HILARY: 12/29/2016 14:00) ( MsgRcvd 12/29/2016 14:47) Final results Test Result Flag Units (Reference) AMPHETAMINE/METHAMPHETAMINE NEGATIVE (NEGATIVE) BARBITURATE NEGATIVE (NEGATIVE) BENZODIAZEPINE NEGATIVE (NEGATIVE) CANNABINOID NEGATIVE (NEGATIVE) COCAINE NEGATIVE (NEGATIVE) ECSTASY NEGATIVE (NEGATIVE) METHADONE NEGATIVE (NEGATIVE) OPIATE POSITIVE H (NEGATIVE) The urine drug screen is a qualitative screening test fordrug overdose and abuse. All screen results should beconsidered as presumptive.Drugs screened for are as follows:BenzodiazepinesCocaineAmphetamines/MetamphetaminesTHC (Tetrahydrocannabinol)OpiatesBarbituratesEcstasyMethadonePositive results are unconfirmed. For confirmation, notifythe lab for the specimen to be sent to the reference lab.All confirmations must be performed by a differentmethodology.The ingestion of natural herbal and plant productscontaining Ephedra/Ephedra metabolites can produce in urineone or more substances capable of cross reacting withamphetamine/methamphetamine immunoassays. These testsprovide a preliminary result only. A more specificalternative chemical method must be used to obtain aconfirmed analytical result. CMP: (HILARY: 12/29/2016 14:00) ( MsgRcvd 12/29/2016 14:55) Final results Test Result Flag Units (Reference) GLUCOSE 160 H mg/dL (70-110) BUN 19 H mg/dL (7-18) CREATININE 1.0 mg/dL (0.6-1.3) Estimated GFR >60 mL/min Estimated GFR- >60 mL/min Note: Persistent reduction over 3 months in eGFR<60 mL/min/1.73 m2 defines CKD. Patients with eGFR values>=60 mL/min/1.73 m2 may also have CKD if evidence ofpersistent proteinuria. Additional information may be foundat www.kidney.org. SODIUM 138 mmol/L (136-145) POTASSIUM 3.3 L mmol/L (3.5-5.1) CHLORIDE 101 mmol/L (98-107) CARBON DIOXIDE 26 mmol/L (21-32) CALCIUM 8.9 mg/dL (8.5-10.1) TOTAL PROTEIN 7.6 g/dL (6.4-8.2) ALBUMIN 4.1 g/dL (3.3-5.0) BILIRUBIN, TOTAL 0.6 mg/dL (0.0-1.0) ALKALINE PHOSPHATASE 50 U/L (46-116) AST (SGOT) 12 L U/L (15-37) ALT (SGPT) 21 U/L (12-78) LIPASE 159 U/L (73-393) . PROGRESS AND PROCEDURES Course of Care: patient in the emergency department with epigastric pain, resting comfortably after 2 L fluid, given . Patient with no signs of acute surgical abdomen, no peritoneal tenderness. No guarding. Patient is very stable. No CVA tenderness. Urinalysis was some concern for cystitis, started on Macrobid. The patient able to take small sips. Given prescriptions for antiemetic medications. I do not suspect a surgical abdomen for this patient at this time. 12/29/2016 15:47 BP: 99/77. HR: 76. O2 saturation: 100%. Patient is stable. Symptoms better. Patient/family counseled. Differential Diagnosis: I considered gastritis, gastroenteritis, acute appendicitis, diverticulitis, small bowel obstruction, biliary colic, hepatitis, splenic disease, splenic injury, intraabdominal abscess, urinary tract infection, cystitis, ovarian cyst, pelvic abscess and abdominal aortic aneurysm as a possible cause of abdominal pain in this patient. This is a partial list of diagnoses considered. Disposition: Discharged. Condition: good. CLINICAL IMPRESSION Abdominal pain of unknown cause. INSTRUCTIONS Drink plenty of fluids. (take probiotic signs of early bladder infection). Warnings: Further evaluation is necessary. Prescription Medications: Zofran take 1-2 orally every 8 hours for 3 days as needed for nausea. Dispense ten (10). No refill. Macrobid 100 mg: Take 1 capsule orally every 12 hours for 7 days. No refills. Substitution is permissible. Reglan take 1 orally every 8 hours for 3 days as needed for nausea or vomiting. Dispense ten (10). No refills. Substitution is permissible. Follow-up: Follow up with your doctor in three days. Understanding of the discharge instructions verbalized. (Electronically signed by Greta Moreno P.A.-C 12/29/2016 16:42)
--- NOTE | 2016-12-29 16:32 | ED NURSING NOTES ---
Clinical Report - Nurses [facility] [address] [place] [address] 12/29/2016 13:45 Patient: DANIEL MOON TRIAGE Triage time 13:49 Dec 29 2016. Acuity: LEVEL 3. Chief Complaint: ABDOMINAL PAIN, NAUSEA and VOMITING. 13:53 12/29/16. Alert. No acute distress. SEPSIS SCREEN: Sepsis Screen. Negative (no infection suspected/documented). --13:53 Ale Wagner 13:53 12/29/16. BP: 132/89. HR: 68. RR: 16. O2 saturation: 100%. Temp: 98.4 F. Pain level now 10/10. --13:53 Ale Wagner. Weight: 61.2 kg stated. Height/Length: 65 inches Per Patient. BMI: 22.5. --13:52 Ale Wagner. Medications Omeprazole Oral 40 mg, daily as needed. OxyCODONE HCl Oral 10 mg, as needed, last dose 2200 (cant hold them down ). zofran 4mg odt (threw up last 2 at 2200 . --13:52 Ale Wagner. Medication/allergy information source: the patient. --13:53 Ale Wagner. Allergies Augmentin. Erythromycin. Latex. Penicillin V. Penicillins. Sulfa Drugs. --13:52 Ale Wagner. History Arrived by private vehicle. Historian: patient. [facility] Onset. (Wednesday night). Describes the quality as pressure. Relates location as in the epigastric area and upper abdomen. Notes pain level as 10/10 on arrival and at maximum. Provoking / relieving factors: worsened by movement. ( Pt reports that she had stomach pain that started Wednesday night when she was sleeping. Was here on Wednesday and "had to leave early because my ride wouldn't wait."). The patient has had a subjective fever, nausea, vomiting and abdominal pain. No diarrhea or constipation. 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 PAST MEDICAL HX: Immunizations: up-to-date. Last normal menstrual period was 3 weeks ago. Denies current . SOCIAL HX: Former smoker ("quit 5-6 days ago"). Occasional alcohol use. No drug use. No recent travel. No known contact with a sick individual. FALL RISK ASSESSMENT: Fall risk assessment completed. No fall risk identified. NUTRITIONAL RISK ASSESSMENT: The nutritional risk assessment revealed no deficiencies. FUNCTIONAL ASSESSMENT: Functional assessment: no impairments noted. LEARNING NEEDS ASSESSMENT: The learning needs assessment revealed no barriers. SKIN INTEGRITY ASSESSMENT: Skin integrity risk assessment completed. No skin integrity risk identified. --13:53 Ale Wagner. PROBLEMS: Abdominal Pain. Wound Dehiscence. Sciatica. Back Pain. Torticollis. --13:52 Ale Wagner. ADDITIONAL SURGERIES: Back Surgery. Carpal Tunnel Surgery. Hernia Repair. LESI. R ovarian tube removal. Tubal Ligation. --13:52 Ale Wagner. Assessment The patient states feels the same. --13:53 Ale Wagner. Interventions ID band on patient. --13:53 Ale Wagner. PHYSICAL ASSESSMENT 13:54 12/29/16. Ambulatory to room. Patient gowned. GENERAL / NEURO / PSYCH: Alert. Oriented X 4. Appears in pain. HEENT: Mucous membranes are pink. RESPIRATORY: Respirations not labored. CVS: Capillary refill less than 2 seconds. GI / : Abdominal tenderness. SKIN: Skin is warm and dry. --13:54 Ale Wagner. NURSING PROGRESS NOTES 13:54 12/29/16. The plan of care for this patient has been created. Pulse oximeter and NIBP monitor placed on patient; monitor alarms on. Patient gowned. Head of bed elevated. Reassurance given. Two patient identifiers checked. Call light placed in reach. Side rails up x 1. Bed placed in lowest position. Brakes of bed on. Patient ready for evaluation- chart flagged and ED physician and PA notified. --13:54 Ale Wagner 13:55 12/29/16. ( Warm blanket provided to patient.). --13:55 Ale Wagner 14:00 12/29/2016 Site #1 started via IV in the right antecubital space with an 18g angiocath, with aseptic technique and good blood return; one attempt. Blood drawn: rainbow set. Labeled in the presence of the patient and sent to the lab. Saline lock flushed with 10 mL saline. --14:25 Ale Wagner 14:06 12/29/16. ( Patient unwilling to answer questions, "I just went over this on Wednesday when I came in." Lights dimmed per patient request.). --14:06 Ale Wagner 14:10 12/29/2016 Started bag #1 1000 mL IV Fluids IV NS (Saline); at 1000 mL/hr over 1 hour(s) via site #1 via IV pump. Allergies verified and confirmed 5 rights. IV patency established. IV site checked: no pain, redness, or swelling. IV flushed thoroughly pre- and post-medication administration. --14:25 Ale Wagner 14:15 12/29/2016 Zofran (Ondansetron HCl) IVP 8 mg given over 1 minute(s) via site #1. Allergies verified and confirmed 5 rights. IV patency established. IV site checked: no pain, redness, or swelling. IV flushed thoroughly pre- and post-medication administration. IVP given by RN. --14:25 Ale Wagner 14:17 12/29/2016 Toradol IVP 30 mg given over 30 second(s) via site #1. Allergies verified and confirmed 5 rights. IV patency established. IV site checked: no pain, redness, or swelling. IV flushed thoroughly pre- and post-medication administration. IVP given by RN. --14:26 Ale Wagner 14:24 12/29/2016 Started 12.5 mg of PHENERGAN (Promethazine HCl) IVPB in bag #1 50 mL; at 500 mL/hr over 10 minute(s) via site #1 via dial-a-flow. Allergies verified and confirmed 5 rights. IV patency established. IV site checked: no pain, redness, or swelling. IV flushed thoroughly pre- and post-medication administration. --14:29 Ale Wagner 14:31 12/29/16. ( Pt given additional warm blanket per request. States that she believes that she was poisoned by a lady at the [facility] who "hates me."). --14:31 Ale Wagner 14:34 12/29/2016 PHENERGAN IVPB Discontinued: bag #1 infused. Total amount infused: 50 mL. --15:43 Ale Wagner 15:22 12/29/2016 Reglan (Metoclopramide HCl) IVP 10 mg given over 3 minute(s) via site #1. Allergies verified and confirmed 5 rights. IV patency established. IV site checked: no pain, redness, or swelling. IV flushed thoroughly pre- and post-medication administration. IVP given by RN. --15:22 Ale Wagner 15:43 12/29/2016 IV Fluids IV NS Bag Change: bag #1 infused. Total amount infused: 1000. STARTED bag #2 (1000 mL) at 750 mL/hr via IV pump. Confirmed 5 rights. IV patency established. IV site checked: no pain, redness, or swelling. IV flushed thoroughly. --15:43 Ale Wagner 15:47 12/29/16. BP: 99/77. HR: 76. O2 saturation: 100%. --15:47 Ale Wagner 15:47 12/29/16. ( Pt given additional warm blanket per patient request.). --15:47 Ale Wagner 16:34 12/29/2016 Macrobid PO Capsules 100 mg given. Allergies verified and confirmed 5 rights. --16:39 Ale Wagner 16:35 12/29/2016 IV Fluids IV NS Discontinued: bag #2 discontinued upon discharge. Total amount infused: 700 mL. IV patency established. IV site checked: no pain, redness, or swelling. IV flushed thoroughly. --17:17 Ale Wagner 16:38 12/29/2016 Site #1 removed upon discharge. Catheter intact. Manual pressure applied. --17:17 Ale Wagner. DISPOSITION / DISCHARGE 16:38 12/29/16. Departure time: 16:Dec 29 2016. Condition at departure: improved. The goals identified in the patient's plan of care were met. No learning barriers present. Discharge instructions provided and reviewed with the patient. Reviewed warnings (Pt verbalized awareness of warning s/sx listed in dc paperwork.). Reviewed medication(s). Prescription(s) given to the patient (Reglan, zofran, macrobid). Treatments reviewed. Reviewed referral to a primary care physician for followup. Patient verbalized understanding. Written instructions provided in Korean. The patient was discharged by the physician emergency medicine physician assistant. She was discharged home and unaccompanied at time of discharge. She left the Emergency Department ambulatory and via private vehicle. Patient driving. FALL RISK ASSESSMENT: Fall risk assessment completed. No fall risk identified. --17:19 Ale Wagner 16:38 12/29/16. BP: 122/88. HR: 71. RR: 16. O2 saturation: 100% on room air. Temp: 98 F. Pain level now: 11/11. --17:19 Ale Wagner. Locked/Released at 12/29/2016 17:19 by Ale Wagner,
--- NOTE | 2016-12-29 17:20 | ED DISCHARGE INSTRUCTIONS ---
Patient: DANIEL MOON General Instructions [facility] VisitID: [id number] [place] [address] 31y, F Registration Date/Time: 12/29/2016 Abdominal pain of unknown cause. INSTRUCTIONS Drink plenty of fluids. (take probiotic signs of early bladder infection). Warnings: Further evaluation is necessary. Prescription Medications: Zofran take 1-2 orally every 8 hours for 3 days as needed for nausea. Dispense ten (10). No refill. Macrobid 100 mg: Take 1 capsule orally every 12 hours for 7 days. No refills. Substitution is permissible. Reglan take 1 orally every 8 hours for 3 days as needed for nausea or vomiting. Dispense ten (10). No refills. Substitution is permissible. Follow-up: Follow up with your doctor in three days. Understanding of the discharge instructions verbalized. ADDITIONAL INFORMATION Epigastric Pain (Uncertain Cause) Epigastric pain can be a sign of disease in the upper abdomen. Common causes include: Acid reflux (stomach acid flowing up into the esophagus) Gastritis (irritation of the stomach lining) Peptic Ulcer Disease Inflammation of the pancreas Gallstone Infection in the gallbladder Pain may be dull or burning. It may spread upward to the chest or to the back. There may be other symptoms such as belching, bloating, cramps or hunger pains. There may be weight loss or poor appetite, nausea or vomiting. Since the diagnosis of your pain is not certain yet, further tests will be needed. Sometimes the doctor will treat you for the most likely condition to see if there is improvement before doing further tests. Home Care: Unless told otherwise, you may try antacids (Mylanta or Maalox) help neutralize stomach acid. This may relieve your pain. Take 1-2 tablespoons or tablets one hour after meals and at bedtime. The liquid form coats the stomach better than the chewable tablets and is preferred. If Tagamet (cimetidine), Zantac (ranitidine), or Carafate (sucralfate) has also been prescribed, allow one hour between taking this medicine and taking the antacids. Avoid foods that irritate the stomach. Follow a light diet until you are feeling better. Avoid alcohol, caffeine, and tobacco. Talk to your doctor before taking any [id number] medicine that contains aspirin or an anti-inflammatory drug such as ibuprofen, Advil, Motrin, Naprosyn, or Aleve. Follow Up with your doctor or as advised if you do not improve over the next 48 hours. Get Prompt Medical Attention if any of the following occur: Stomach pain worsens or moves to the right lower part of the abdomen Chest pain appears, or if it worsens or spreads to the chest, back, neck, shoulder, or arm Frequent vomiting (cant keep down liquids) Blood in the stool or vomit (red or black color) Feeling weak or dizzy, fainting, or having trouble breathing Fever of 100.4F (38C) or higher, or as directed by your healthcare provider Abdominal swelling Symptoms With Uncertain Cause [Adult] Based on the exam and any tests that were performed today, the exact cause of your symptoms is not certain. While your condition does not seem serious, the signs of a serious problem may take more time to appear. Therefore, it is important for you to watch for any new symptoms or worsening of your condition.Follow up with your doctor or this facility, as directed.A repeat physical exam or additional testing at a later time may uncover a cause for your symptoms that is not evident today. Home Care: Resume your usual activities and diet when this feels comfortable to do so. Follow Up with your doctor, or as advised by our staff.Contact your doctor sooner if your symptoms do not begin to improve in the next few days. [NOTE: If you had an x-ray, CT scan, ultrasound, or ECG (electrocardiogram), it will be reviewed by a specialist. You will be notified of any new findings that may affect your care.] Get Prompt Medical Attention if any of the following occur: Current symptoms get worse New symptoms appear [place] Diet A bland diet is used for patients with an upset stomach. It consists of foods that are mild and easy to digest. It is better to eat small frequent meals rather than three large meals a day. BEVERAGES OK: Fruit juices, non-caffeinated teas and coffee, non-carbonated alanis AVOID: Carbonated beverage, caffeinated tea and coffee, all alcoholic beverages BREAD OK: Refined white, wheat or rye bread, nidia or soda crackers, [place] toast, plain rolls, bagels AVOID: Whole-grain bread CEREAL OK: Refined cereals: cooked or ready to eat AVOID: Whole grain cereals and granola, or those containing bran, seeds or nuts DESSERTS OK: Peanut butter and all others except those to "avoid" AVOID: Chocolate, cocoa, coconut, popcorn, nuts, seeds, jam, marmalade FRUITS OK: Canned, cooked, frozen or fresh fruits without seeds or tough skin AVOID: Olives, skin and seeds of fruit MEATS OK: All fresh or preserved meat, fish and fowl AVOID: Any that are prepared with those spices to "avoid" CHEESE & EGGS OK: Eggs, cottage cheese, cream cheese, other cheeses AVOID: All cheeses made with those spices to "avoid" POTATOES & PASTA OK: Potato, rice, macaroni, noodles, spaghetti AVOID: None SOUPS OK: All soups without heavy seasoning AVOID: Soups made with those spices to "avoid" VEGETABLES OK: Canned, cooked, fresh or frozen mildly flavored vegetables without seeds, skins or coarse fiber AVOID: Vegetables prepared with those spices to "avoid"; skin and seeds of vegetables and those with coarse fiber SPICES OK: Salt, lemon and [place] juice, vinegar, all extracts, sofiya, cinnamon, thyme, mace, allspice, paprika AVOID: [place] powder, cloves, pepper, seed spices, garlic, gravy pickles, highly seasoned salad dressings Clear Liquid Diet Clear liquids are any liquid that you can see through as well as those that are very easy to digest. This is used while the body is recovering from irritation or infection of the stomach or intestinal tract. It may also be used before special procedures or surgery. This diet is to be used no more than three days. You may include the following items. Adults Adults should drink a total of 23 quarts of liquid per day. It may be easier to drink small frequent servings rather than a few large ones. Liquids can include: Fruit juices.Strained orange juice or lemonade (no pulp), apple, grape and cranberry juice, clear fruit drinks, sports drinks Beverages.Sport drinks, sodas, mineral water (plain or flavored), tea, black coffee, liquid gelatin (add twice the recommended amount of water) Soups.Clear broth, consomm, bouillon Desserts.Plain gelatin, popsicles, fruit juice bars Children Over 2 years old The following liquids are acceptable for children over age 2: Fruit juices.Strained orange juice or lemonade (no pulp), apple, grape and cranberry juice, clear fruit drinks Beverages. Sports drinks, sodas, mineral water (plain or flavored), tea, liquid gelatin (add twice the recommended amount of water) Soups. Clear broth, consomm, bouillon Desserts. Plain gelatin, popsicles, fruit juice bars Children under 2 years old Oral rehydration fluids such are available at drug stores and most grocery stores without a prescription. Ondansetron Oral disintegrating tablet What is this medicine? ONDANSETRON (on ONEIL se zain) is used to treat nausea and vomiting caused by chemotherapy. It is also used to prevent or treat nausea and vomiting after surgery. How should I use this medicine? These tablets are made to dissolve in the mouth. Do not try to push the tablet through the foil backing. With dry hands, peel away the foil backing and gently remove the tablet. Place the tablet in the mouth and allow it to dissolve, then swallow. While you may take these tablets with water, it is not necessary to do so. Talk to your development mechanic regarding the use of this medicine in children. Special care may be needed. What side effects may I notice from receiving this medicine? Side effects that you should report to your doctor or health animal care attendant as soon as possible: allergic reactions like skin rash, itching or hives, swelling of the face, lips, or tongue breathing problems dizziness fast or irregular heartbeat feeling faint or lightheaded, falls fever and chills swelling of the hands and feet tightness in the chest Side effects that usually do not require medical attention (report to your doctor or health animal care attendant if they continue or are bothersome): constipation or diarrhea headache What may interact with this medicine? Do not take this medicine with any of the following medications: -apomorphine -cisapride -dofetilide -dronedarone -pimozide -thioridazine -ziprasidone This medicine may also interact with the following medications: -carbamazepine -phenytoin -rifampicin -tramadol -other medicines that prolong the QT interval (cause an abnormal heart rhythm) What if I miss a dose? If you miss a dose, take it as soon as you can. If it is almost time for your next dose, take only that dose. Do not take double or extra doses. Where should I keep my medicine? Keep out of the reach of children. Store between 2 and 30 degrees C (36 and 86 degrees F). Throw away any unused medicine after the expiration date. What should I tell my health care provider before I take this medicine? They need to know if you have any of these conditions: heart disease history of irregular heartbeat liver disease low levels of magnesium or potassium in the blood an unusual or allergic reaction to ondansetron, granisetron, other medicines, foods, dyes, or preservatives or trying to get breast-feeding What should I watch for while using this medicine? Check with your doctor or health animal care attendant as soon as you can if you have any sign of an allergic reaction. You have been given the following additional information: Epigastric Pain (Uncertain Cause) Symptoms With Uncertain Cause Diet, [place] (Adult) Diet, Clear Liquid Ondansetron Oral disintegrating tablet (Electronically signed by Greta Moreno P.A.-C 12/29/2016 16:42)
--- NOTE | 2016-12-29 17:20 | ED MAR SUMMARY ---
..... Medication Administration Record [facility] [address] [place] [address] Patient: DANIEL MOON Visit ID: [id number] 31y, F Weight: 61.2 kg Height/Length: 65 in BMI: 22.5 ALLERGIES: Augmentin, Erythromycin, Latex, Penicillin V, Penicillins, Sulfa Drugs Start 14:10 12/29/2016 Ale Wagner,, Stop 16:35 12/29/2016 Ale Wagner, Medication Administered: IV NS (SALINE), Dose: IV Fluids over 1 hour(s), Rate: 1000 mL/hr, Dispensed: 1000 mL bag, Site: #1 right AC. Medication Ordered: IV NS : initial bolus 1000 mL (1000 mL/hr), then 750 mL/hr for X1 (NOW); Víctor. Given 14:15 12/29/2016 Ale Wagner, Medication Administered: ZOFRAN [IVP] (ONDANSETRON HCL), Dose: 8 mg IVP over 1 minute(s), Site: #1 right AC. Medication Ordered: Zofran IV 8 mg (NOW). Given 14:17 12/29/2016 Ale Wagner, Medication Administered: TORADOL [IVP], Dose: 30 mg IVP over 30 second(s), Site: #1 right AC. Medication Ordered: Toradol IV 30 mg (NOW). Start 14:24 12/29/2016 Ale Wagner,, Stop 14:34 12/29/2016 Ale Wagner, Medication Administered: PHENERGAN [IVPB] (PROMETHAZINE HCL), Dose: 12.5 mg IVPB over 10 minute(s), Rate: 500 mL/hr, Dispensed: 50 mL bag, Site: #1 right AC. Medication Ordered: Phenergan IV 12.5 mg (HIGH ALERT MEDICATION, NOW). Given 15:22 12/29/2016 Ale Wagner, Medication Administered: REGLAN [IVP] (METOCLOPRAMIDE HCL), Dose: 10 mg IVP over 3 minute(s), Site: #1 right AC. Medication Ordered: Reglan IV 10 mg (NOW). Given 16:34 12/29/2016 Ale Wagner, Medication Administered: MACROBID [PO], Dose: 100 mg Capsules PO. Medication Ordered: Macrobid PO 100 mg (NOW).
--- NOTE | 2016-12-29 17:20 | ED MED RECONCILIATION SUMMARY ---
Patient: DANIEL MOON Medication Reconciliation Report [facility] VisitID: [id number] [place] [address] 31y, F Registration Date/Time: 12/29/2016 Weight: 61.2 kg Height/Length: 65 in. BMI: 22.5 ALLERGIES: Augmentin, Erythromycin, Latex, Penicillin V, Penicillins, Sulfa Drugs The patient's Home Medications are listed below: THE FOLLOWING MEDICATIONS NEED TO BE RECONCILED: Omeprazole Oral 40 mg, daily OxyCODONE HCl Oral 10 mg, last dose: 2200 (cant hold them down ) zofran 4mg odt (threw up last 2 at 2200 The source(s) of the original Home Medication information: patient The following Medications were given to the patient in the Emergency Department: IV NS IV Fluids bolus 0, then 1000 mL/hr, administered: 12/29/2016 2:10:00 PM Zofran [IVP] IVP 8 mg, administered: 12/29/2016 2:15:00 PM Toradol [IVP] IVP 30 mg, administered: 12/29/2016 2:17:00 PM PHENERGAN [IVPB] IVPB bolus 0, then 12.5 mg 500 mL/hr, administered: 12/29/2016 2:24:00 PM Reglan [IVP] IVP 10 mg, administered: 12/29/2016 3:22:00 PM Macrobid [PO] PO 100 mg, administered: 12/29/2016 4:34:00 PM The following Medications were prescribed to the patient: Zofran take 1-2 orally every 8 hours for 3 days as needed for nausea. Dispense ten (10). No refill. -- Greta Moreno, P.A.-C Macrobid 100 mg: Take 1 capsule orally every 12 hours for 7 days. No refills. Substitution is permissible. -- Greta Moreno, P.A.-C Reglan take 1 orally every 8 hours for 3 days as needed for nausea or vomiting. Dispense ten (10). No refills. Substitution is permissible. -- Greta Moreno, P.A.-C
--- NOTE | 2016-12-29 17:20 | ED DISCHARGE INSTRUCTIONS ---
Patient: DANIEL MOON General Instructions [facility] VisitID: [id number] [place] [address] 31y, F Registration Date/Time: 12/29/2016 Abdominal pain of unknown cause. INSTRUCTIONS Drink plenty of fluids. (take probiotic signs of early bladder infection). Warnings: Further evaluation is necessary. Prescription Medications: Zofran take 1-2 orally every 8 hours for 3 days as needed for nausea. Dispense ten (10). No refill. Macrobid 100 mg: Take 1 capsule orally every 12 hours for 7 days. No refills. Substitution is permissible. Reglan take 1 orally every 8 hours for 3 days as needed for nausea or vomiting. Dispense ten (10). No refills. Substitution is permissible. Follow-up: Follow up with your doctor in three days. Understanding of the discharge instructions verbalized. ADDITIONAL INFORMATION Epigastric Pain (Uncertain Cause) Epigastric pain can be a sign of disease in the upper abdomen. Common causes include: Acid reflux (stomach acid flowing up into the esophagus) Gastritis (irritation of the stomach lining) Peptic Ulcer Disease Inflammation of the pancreas Gallstone Infection in the gallbladder Pain may be dull or burning. It may spread upward to the chest or to the back. There may be other symptoms such as belching, bloating, cramps or hunger pains. There may be weight loss or poor appetite, nausea or vomiting. Since the diagnosis of your pain is not certain yet, further tests will be needed. Sometimes the doctor will treat you for the most likely condition to see if there is improvement before doing further tests. Home Care: Unless told otherwise, you may try antacids (Mylanta or Maalox) help neutralize stomach acid. This may relieve your pain. Take 1-2 tablespoons or tablets one hour after meals and at bedtime. The liquid form coats the stomach better than the chewable tablets and is preferred. If Tagamet (cimetidine), Zantac (ranitidine), or Carafate (sucralfate) has also been prescribed, allow one hour between taking this medicine and taking the antacids. Avoid foods that irritate the stomach. Follow a light diet until you are feeling better. Avoid alcohol, caffeine, and tobacco. Talk to your doctor before taking any [id number]-[id number] medicine that contains aspirin or an anti-inflammatory drug such as ibuprofen, Advil, Motrin, Naprosyn, or Aleve. Follow Up with your doctor or as advised if you do not improve over the next 48 hours. Get Prompt Medical Attention if any of the following occur: Stomach pain worsens or moves to the right lower part of the abdomen Chest pain appears, or if it worsens or spreads to the chest, back, neck, shoulder, or arm Frequent vomiting (cant keep down liquids) Blood in the stool or vomit (red or black color) Feeling weak or dizzy, fainting, or having trouble breathing Fever of 100.4F (38C) or higher, or as directed by your healthcare provider Abdominal swelling Symptoms With Uncertain Cause [Adult] Based on the exam and any tests that were performed today, the exact cause of your symptoms is not certain. While your condition does not seem serious, the signs of a serious problem may take more time to appear. Therefore, it is important for you to watch for any new symptoms or worsening of your condition.Follow up with your doctor or this facility, as directed.A repeat physical exam or additional testing at a later time may uncover a cause for your symptoms that is not evident today. Home Care: Resume your usual activities and diet when this feels comfortable to do so. Follow Up with your doctor, or as advised by our staff.Contact your doctor sooner if your symptoms do not begin to improve in the next few days. [NOTE: If you had an x-ray, CT scan, ultrasound, or ECG (electrocardiogram), it will be reviewed by a specialist. You will be notified of any new findings that may affect your care.] Get Prompt Medical Attention if any of the following occur: Current symptoms get worse New symptoms appear [place] Diet A bland diet is used for patients with an upset stomach. It consists of foods that are mild and easy to digest. It is better to eat small frequent meals rather than three large meals a day. BEVERAGES OK: Fruit juices, non-caffeinated teas and coffee, non-carbonated alanis AVOID: Carbonated beverage, caffeinated tea and coffee, all alcoholic beverages BREAD OK: Refined white, wheat or rye bread, nidia or soda crackers, [place] toast, plain rolls, bagels AVOID: Whole-grain bread CEREAL OK: Refined cereals: cooked or ready to eat AVOID: Whole grain cereals and granola, or those containing bran, seeds or nuts DESSERTS OK: Peanut butter and all others except those to "avoid" AVOID: Chocolate, cocoa, coconut, popcorn, nuts, seeds, jam, marmalade FRUITS OK: Canned, cooked, frozen or fresh fruits without seeds or tough skin AVOID: Olives, skin and seeds of fruit MEATS OK: All fresh or preserved meat, fish and fowl AVOID: Any that are prepared with those spices to "avoid" CHEESE & EGGS OK: Eggs, cottage cheese, cream cheese, other cheeses AVOID: All cheeses made with those spices to "avoid" POTATOES & PASTA OK: Potato, rice, macaroni, noodles, spaghetti AVOID: None SOUPS OK: All soups without heavy seasoning AVOID: Soups made with those spices to "avoid" VEGETABLES OK: Canned, cooked, fresh or frozen mildly flavored vegetables without seeds, skins or coarse fiber AVOID: Vegetables prepared with those spices to "avoid"; skin and seeds of vegetables and those with coarse fiber SPICES OK: Salt, lemon and assiniboine and sioux juice, vinegar, all extracts, sofiya, cinnamon, thyme, mace, allspice, paprika AVOID: [place] powder, cloves, pepper, seed spices, garlic, gravy pickles, highly seasoned salad dressings Clear Liquid Diet Clear liquids are any liquid that you can see through as well as those that are very easy to digest. This is used while the body is recovering from irritation or infection of the stomach or intestinal tract. It may also be used before special procedures or surgery. This diet is to be used no more than three days. You may include the following items. Adults Adults should drink a total of 23 quarts of liquid per day. It may be easier to drink small frequent servings rather than a few large ones. Liquids can include: Fruit juices.Strained orange juice or lemonade (no pulp), apple, grape and cranberry juice, clear fruit drinks, sports drinks Beverages.Sport drinks, sodas, mineral water (plain or flavored), tea, black coffee, liquid gelatin (add twice the recommended amount of water) Soups.Clear broth, consomm, bouillon Desserts.Plain gelatin, popsicles, fruit juice bars Children Over 2 years old The following liquids are acceptable for children over age 2: Fruit juices.Strained orange juice or lemonade (no pulp), apple, grape and cranberry juice, clear fruit drinks Beverages. Sports drinks, sodas, mineral water (plain or flavored), tea, liquid gelatin (add twice the recommended amount of water) Soups. Clear broth, consomm, bouillon Desserts. Plain gelatin, popsicles, fruit juice bars Children under 2 years old Oral rehydration fluids such are available at drug stores and most grocery stores without a prescription. Ondansetron Oral disintegrating tablet What is this medicine? ONDANSETRON (on ONEIL se zain) is used to treat nausea and vomiting caused by chemotherapy. It is also used to prevent or treat nausea and vomiting after surgery. How should I use this medicine? These tablets are made to dissolve in the mouth. Do not try to push the tablet through the foil backing. With dry hands, peel away the foil backing and gently remove the tablet. Place the tablet in the mouth and allow it to dissolve, then swallow. While you may take these tablets with water, it is not necessary to do so. Talk to your personal injury law specialist regarding the use of this medicine in children. Special care may be needed. What side effects may I notice from receiving this medicine? Side effects that you should report to your doctor or health care management specialist as soon as possible: allergic reactions like skin rash, itching or hives, swelling of the face, lips, or tongue breathing problems dizziness fast or irregular heartbeat feeling faint or lightheaded, falls fever and chills swelling of the hands and feet tightness in the chest Side effects that usually do not require medical attention (report to your doctor or health care management specialist if they continue or are bothersome): constipation or diarrhea headache What may interact with this medicine? Do not take this medicine with any of the following medications: -apomorphine -cisapride -dofetilide -dronedarone -pimozide -thioridazine -ziprasidone This medicine may also interact with the following medications: -carbamazepine -phenytoin -rifampicin -tramadol -other medicines that prolong the QT interval (cause an abnormal heart rhythm) What if I miss a dose? If you miss a dose, take it as soon as you can. If it is almost time for your next dose, take only that dose. Do not take double or extra doses. Where should I keep my medicine? Keep out of the reach of children. Store between 2 and 30 degrees C (36 and 86 degrees F). Throw away any unused medicine after the expiration date. What should I tell my health care provider before I take this medicine? They need to know if you have any of these conditions: heart disease history of irregular heartbeat liver disease low levels of magnesium or potassium in the blood an unusual or allergic reaction to ondansetron, granisetron, other medicines, foods, dyes, or preservatives or trying to get breast-feeding What should I watch for while using this medicine? Check with your doctor or health care management specialist as soon as you can if you have any sign of an allergic reaction. You have been given the following additional information: Epigastric Pain (Uncertain Cause) Symptoms With Uncertain Cause Diet, [place] (Adult) Diet, Clear Liquid Ondansetron Oral disintegrating tablet (Electronically signed by Greta Moreno P.A.-C 12/29/2016 16:42)
--- NOTE | 2016-12-29 17:20 | ED MED RECONCILIATION SUMMARY ---
Patient: DANIEL MOON Medication Reconciliation Report [facility] VisitID: [id number] [place] [address] 31y, F Registration Date/Time: 12/29/2016 Weight: 61.2 kg Height/Length: 65 in. BMI: 22.5 ALLERGIES: Augmentin, Erythromycin, Latex, Penicillin V, Penicillins, Sulfa Drugs The patient's Home Medications are listed below: THE FOLLOWING MEDICATIONS NEED TO BE RECONCILED: Omeprazole Oral 40 mg, daily OxyCODONE HCl Oral 10 mg, last dose: 2200 (cant hold them down ) zofran 4mg odt (threw up last 2 at 2200 The source(s) of the original Home Medication information: patient The following Medications were given to the patient in the Emergency Department: IV NS IV Fluids bolus 0, then 1000 mL/hr, administered: 12/29/2016 2:10:00 PM Zofran [IVP] IVP 8 mg, administered: 12/29/2016 2:15:00 PM Toradol [IVP] IVP 30 mg, administered: 12/29/2016 2:17:00 PM PHENERGAN [IVPB] IVPB bolus 0, then 12.5 mg 500 mL/hr, administered: 12/29/2016 2:24:00 PM Reglan [IVP] IVP 10 mg, administered: 12/29/2016 3:22:00 PM Macrobid [PO] PO 100 mg, administered: 12/29/2016 4:34:00 PM The following Medications were prescribed to the patient: Zofran take 1-2 orally every 8 hours for 3 days as needed for nausea. Dispense ten (10). No refill. -- Greta Moreno, P.A.-C Macrobid 100 mg: Take 1 capsule orally every 12 hours for 7 days. No refills. Substitution is permissible. -- Greta Moreno, P.A.-C Reglan take 1 orally every 8 hours for 3 days as needed for nausea or vomiting. Dispense ten (10). No refills. Substitution is permissible. -- Greta Moreno, P.A.-C
--- NOTE | 2016-12-29 17:20 | ED MAR SUMMARY ---
..... Medication Administration Record [facility] [address] [place] [address] Patient: DANIEL MOON Visit ID: [id number] 31y, F Weight: 61.2 kg Height/Length: 65 in BMI: 22.5 ALLERGIES: Augmentin, Erythromycin, Latex, Penicillin V, Penicillins, Sulfa Drugs Start 14:10 12/29/2016 Ale Wagner,, Stop 16:35 12/29/2016 Ale Wagner, Medication Administered: IV NS (SALINE), Dose: IV Fluids over 1 hour(s), Rate: 1000 mL/hr, Dispensed: 1000 mL bag, Site: #1 right AC. Medication Ordered: IV NS : initial bolus 1000 mL (1000 mL/hr), then 750 mL/hr for X1 (NOW); Víctor. Given 14:15 12/29/2016 Ale Wagner, Medication Administered: ZOFRAN [IVP] (ONDANSETRON HCL), Dose: 8 mg IVP over 1 minute(s), Site: #1 right AC. Medication Ordered: Zofran IV 8 mg (NOW). Given 14:17 12/29/2016 Ale Wagner, Medication Administered: TORADOL [IVP], Dose: 30 mg IVP over 30 second(s), Site: #1 right AC. Medication Ordered: Toradol IV 30 mg (NOW). Start 14:24 12/29/2016 Ale Wagner,, Stop 14:34 12/29/2016 Ale Wagner, Medication Administered: PHENERGAN [IVPB] (PROMETHAZINE HCL), Dose: 12.5 mg IVPB over 10 minute(s), Rate: 500 mL/hr, Dispensed: 50 mL bag, Site: #1 right AC. Medication Ordered: Phenergan IV 12.5 mg (HIGH ALERT MEDICATION, NOW). Given 15:22 12/29/2016 Ale Wagner, Medication Administered: REGLAN [IVP] (METOCLOPRAMIDE HCL), Dose: 10 mg IVP over 3 minute(s), Site: #1 right AC. Medication Ordered: Reglan IV 10 mg (NOW). Given 16:34 12/29/2016 Ale Wagner, Medication Administered: MACROBID [PO], Dose: 100 mg Capsules PO. Medication Ordered: Macrobid PO 100 mg (NOW).
== END 2016-12-29 16:39 | disposition home or self-care (01) ==
LOC: ED SRH 13:42
DX: R10.13 Epigastric pain (principal); Z88.0 Allergy status to penicillin; Z88.2 Allergy status to sulfonamides; Z88.1 Allergy status to other antibiotic agents
CPT/HCPCS: 90004; 90100; 90469; 92235; 92760; 92761; 92762; 92763; 92764; 92765; 92766; 92767; 95059